=== PATIENT | female | born 1960 | race Caucasian/White ===

== ENCOUNTER → 2021-09-02 | Outpatient (CLI) | payer BC ==
--- NOTE | 2021-09-02 10:55 | MR ---
EXAMINATION TYPE: MR brain wo DATE OF EXAM: 09/02/2021 COMPARISON: NONE HISTORY: Progressive imbalance, cervical myelopathy, forgetfulness, dizziness, neck pain TECHNIQUE: T1-weighted sagittal, T2, FLAIR, and diffusion axial, and T2 coronal coronal views of the brain are submitted. FINDINGS: There is no evidence of acute ischemia. There is a moderate degenerative change of the greater centra l component. Faint periventricular confluent areas of signal are seen as well as multiple subcentimet er scattered areas throughout the white matter bilaterally. Finding nonspecific. No midline shift or mass effect.. Craniocervical junction maintained. Sella turcica has a normal appearance. No cerebellopontine angle mass. Changes of chronic sinusitis are noted. Orbits are symmetric. 5 mm lo w density lesion left frontal bone most likely related to assess benign bone cyst. Well-circumscribed margins. IMPRESSION: 1. No acute intracranial process. There is degenerative change with a greater central component. Norm al pressure hydrocephalus in the differential diagnosis. Nonspecific white matter changes could been the basis of remote white matter ischemia. Mild transependymal edema the differential diagnosis. 2. Chronic sinusitis. 3. 5 mm left frontal osseous lesion with well-circumscribed margins likely benign. Short-term follow- up 6 month follow-up be obtained to confirm stability. EXAMINATION TYPE: MR cervical spine wo DATE OF EXAM: 09/02/2021 COMPARISON: NONE HISTORY: Progressive imbalance, cervical myelopathy, forgetfulness, dizziness, neck pain TECHNIQUE: T1 sagittal and coronal, T2 sagittal, and gradient echo axial views of the cervical spine are submitted. FINDINGS: The cranial cervical junction is preserved. There is no abnormal signal seen within the sp inal cord or paraspinal soft tissues. There is a scoliotic curvature of the cervical thoracic spine s ignificant curvature noted. At C2-3 there is no disc herniation or canal stenosis. There is facet arthropathy but no significant foraminal encroachment At C3-4 there is disc desiccation and facet arthropathy but no disc herniation or canal stenosis. The re is mild left-sided foraminal encroachment. Facet arthropathy noted. At C4-5 there is degenerative disc disease with facet arthropathy. No disc herniation or canal stenos is. No focal herniation. At C5-6 there is there is a grade 1 anterolisthesis with more advanced facet arthropathy. Broad-based central disc bulging with effacement of thecal sac but no spinal cord contact slightly greater parac entrally to the left. Severe degenerative disc disease. At C6-7 there is severe degenerative disc disease with facet arthropathy and slight anterolisthesis. Neural foramina remain patent with no obvious disc herniation or canal stenosis. Very mild central di sc bulging with no discrete herniation. At C7-T1 there is no disc herniation, canal stenosis, or foraminal encroachment. IMPRESSION: 1. Thickened scoliotic curvature of the cervical spine with multilevel degenerative disc disease and severe changes seen at C5-6 and C6-7-7. Both levels demonstrate a slight anterolisthesis and advance d facet arthropathy. Both levels demonstrate mild broad-based disc bulging with effacement of thecal sac but no significant canal stenosis or spinal cord contact. 2. Multilevel facet arthropathy.
== END | disposition home or self-care (01) ==
LOC: RADMRIMAIN 08:02
PROVIDERS: ATTEND Psychiatry & Neurology Neurology
DX: G91.2 (Idiopathic) normal pressure hydrocephalus (principal); I67.82 Cerebral ischemia; J32.9 Chronic sinusitis, unspecified; M50.323 Other cervical disc degeneration at C6-C7 level; M47.812 Spondylosis without myelopathy or radiculopathy, cervical region; M43.12 Spondylolisthesis, cervical region; M41.83 Other forms of scoliosis, cervicothoracic region
CPT/HCPCS: 70551; 72141

== ENCOUNTER → 2022-04-23 | Outpatient (CLI) | payer BC ==
--- NOTE | 2022-04-24 09:03 | MR ---
EXAMINATION TYPE: MR lumbar spine wo con DATE OF EXAM: 04/23/2022 COMPARISON: None HISTORY: Lower back pain, radiates down right leg x 1 yr. No history surgery/trauma. CONTRAST: 0 mL intravenous Gadavist. TECHNIQUE: Multiplanar, multisequence images of the lumbar spine were acquired. FINDINGS: L5-S1: No significant disc bulge or disc herniation. No spinal canal stenosis. No foraminal stenosi s. L4-L5: There is a grade 1 spondylolisthesis of L4 anteriorly on L5. Disc uncovering has moderate ante rior thecal sac flattening. Facet hypertrophy is present more so on the right. Severe right foraminal stenosis is present. No AP spinal canal stenosis is present. L3-L4: Broad-based disc bulge is present with mild anterior thecal sac flattening. No AP spinal canal stenosis present. Facet hypertrophy with ligamentum flavum laxity has minimal posterior lateral thec al sac compression greater on the right. Mild right and left foraminal stenosis is present. L2-L3: Minimal disc bulge has anterior thecal sac contact. No AP spinal canal stenosis present. Facet hypertrophy and ligamentum flavum laxity of posterior lateral thecal sac compression. Foramen are pa tent. L1-L2: There is loss of disc height to this level. Minimal retrograde spondylolisthesis of L1 on L2 i s present. Disc bulging greater into the left paracentral region is present with mild anterior thecal sac compression. Some mild focal protrusion may be present in the left paracentral region. No AP spi nal canal stenosis is present. T12-L1: No significant disc bulge or disc herniation. No spinal canal stenosis. No foraminal stenos is. IMPRESSION: 1. Grade 1 spondylolisthesis of L4 anterior and L5. A minimal retrograde spondylolisthesis of L1 on L 2 may be present. 2. Disc uncovering with moderate anterior thecal sac compression L4-5. Severe right foraminal stenosi s is present at this level. 3. Broad-based disc bulge L3-4 with mild anterior thecal sac compression. Facet hypertrophy and ligam entum flavum laxity is present with mild posterior lateral thecal sac compression. Mild foraminal aly nosis. 4. Loss of disc height L1-2. Minimal focal protrusion and mild left paracentral disc bulge is present at L1 to with mild thecal sac compression without stenosis.
== END | disposition home or self-care (01) ==
LOC: RADMRIMAIN 11:53
PROVIDERS: ATTEND Nurse Practitioner Family
DX: M43.16 Spondylolisthesis, lumbar region (principal); M47.816 Spondylosis without myelopathy or radiculopathy, lumbar region; M48.061 Spinal stenosis, lumbar region without neurogenic claudication; M99.73 Connective tissue and disc stenosis of intervertebral foramina of lumbar region
CPT/HCPCS: 72148

== ENCOUNTER → 2022-06-02 | Outpatient (CLI) | payer BC ==
[2022-06-02 12:12] VITALS: BP 180/79; PULSE 82; RESP 18; TEMP 98.4
--- NOTE | 2022-06-02 14:50 | P.PAINPG ---
PQRS Measure Charge Sheet Comment: HISTORY OF PRESENT ILLNESS: 61 yr old female w at side as a referral from [facility] presents today w LBP x 1 yrs secondary to DDD, spondylolisthesis and facet arthropathy without myelopathy for evaluation. Pt her pain level is currently at 8/10 in intensity, constant, fluctuates, sore, tender in character w radiation down the BLEs. Pain is provoked with massage therapy, chiropractic treatments ended in February 2022 due to ineffectiveness, activity. Pain is alleviated with PT x 6 wks in November 2021, medications (Tramadol, Ibuprofen), use of a lumbar support brace, heating pad use, repositioning and rest. PMH: HTN, Hypothyroidism, OA, IDDM PSH:C section x 2, Appendectomy SH: No tobacco use, Evening wine, No illicit drug use. . FH: Denies All: See list Meds: See list REVIEW OF ORGAN SYSTEMS: CONSTITUTIONAL: No fevers or chills. No recent weight loss. NEUROLOGICAL: + numbness and tingling along the distal extremities. No seizure disorders or headaches. MUSCULOSKELETAL: + pain PSYCHIATRIC: Denies current depression or suicidal thoughts. Physical Examinations : Constitutional : Cooperative , not in acute distress . Neurologic : Cranial nerve II to XII intact. No focal neurological deficits. Psychiatric : alert & oriented x 3. Matching mood & appropriate affect. Judgment & insight intact. Musculoskeletal : Cervical Spine Motor strength in the deltoid and biceps: Normal right side. Normal Left side Motor strength biceps and the wrist extensors: Normal right side . Normal left side Motor strength in the triceps muscle: Normal right side. Normal left side Deep tendon reflexes: Normal at the biceps. Normal at Brachioradialis. Normal at triceps Vertebral body tenderness to deep palpation over Cervical facet loading test: positive bilaterally Spurling test: positive bilaterally Neck distraction test: positive bilaterally Jatinder sign: positive bilaterally Lumbar spine Motor strength lower extremities ,thigh and legs 5/5 Right side , 5/5 Left side Deep tendon reflexes : Normal Knee Jerk. Normal Ankle Jerk Vertebral body tenderness over L4 Lumbar facet Loading Test: positive Right / positive Left Range of motion of the lumbar spine Flexion 30 degrees, extension 10 degrees Straight Leg Raise test: Left/ Right positive at 30 degrees Papo test: positive right / positive left. Severe tenderness over the Sacroiliac joint on the Right / Left sides Gaenslen test: positive bilaterally Seated flexion test: positive bilaterally. Sacral spine : Severe tenderness over the Sacroiliac joint: right side / left side Range of motion: Flexion of the lumbar spine <60 degrees Range of motion: Extension of the lumbar spine <20 degrees Gaenslen's Test positive Sp's Test positive Papo test: positive right side / l eft side Thigh Thrust Test Sacral Thrust Test Imaging: MRI without contrast of the lumbar spine from 04/23/22 reviewed Assessment/ Plan : Lumbar DDD, Lumbar spondylosis Recommendation of TYLER L4-5 #1. May need a series of injections, up to 3 per 6 mo period, for optimal pain relief. Risks, benefits of procedure discussed and patient verbalized understanding. Admits to aspirin or anti- coagulant use and admits to medical history of diabetes. Protocol for discontinuation/ continuation of medications dustin procedure discussed. All questions answered. I have spent greater than 30 minutes on patient care today. Dr De Guzman was available by phone for the evaluation of this patient. The time was used to review the medical records including relevant urine studies and Prescription history (MAPs), review of the available imaging, evaluation and examination of the patient, coordination of care with the medical staff and if applicable referring physicians, as well as creation of the medical record Controlled Substance Measures - Controlled Substance Measures Is patient prescribed a controlled substance at discharge?: Yes When asked, does pt state using other controlled substances?: No If prescribed controlled substance>3 days was MAPS reviewed?: Yes If Rx opioid, was Start Talking consent form obtained?: Yes Was information provided regarding opioid addiction?: Yes
== END ==
LOC: PNWHC3 08:54
PROVIDERS: ATTEND Specialist
DX: M51.36 Other intervertebral disc degeneration, lumbar region (principal); M47.816 Spondylosis without myelopathy or radiculopathy, lumbar region; I10 Essential (primary) hypertension; E03.9 Hypothyroidism, unspecified; M19.90 Unspecified osteoarthritis, unspecified site; E11.9 Type 2 diabetes mellitus without complications; Z88.0 Allergy status to penicillin; Z88.5 Allergy status to narcotic agent
CPT/HCPCS: 99211

== ENCOUNTER 2022-07-01 09:47 | Day surgery (SDC) | payer BC ==
[2022-06-30 11:25] VITALS: BMI 26.6
[~2022-07-01 09:47] MED LIST: LACTATED RINGERS 1,000 ML IV SCH
[2022-07-01] MEDS ORDERED: ROPIVACAINE 5 MG/ML 20 ML AMPULE ONE (10:42)
[2022-07-01] MEDS ORDERED: IOPAMIDOL M200 10 ML VIAL ONE (10:42)
[2022-07-01] MEDS ORDERED: fentaNYL (PF) 50 MCG/ML 2 ML AMP ONE (10:42)
[2022-07-01] MEDS ORDERED: TRIAMCINOLONE ACETONIDE 40 MG/ML 1 ML VIAL ONE (10:42)
[2022-07-01] MEDS ORDERED: MIDAZOLAM 2 MG/2 ML VIAL ONE (10:42)
[2022-07-01 10:46] VITALS: RESP 16; TEMP 97.2
[2022-07-01 10:48] LABS: Glucose,Whole Blood 232 mg/dL (70-110)
--- NOTE | 2022-07-01 11:04 | P.PCN ---
Date of Procedure: 07/01/22 Surgeon: Aleks West Pathology: none sent Condition: stable Disposition: PACU Description of Procedure: PREOPERATIVE DIAGNOSIS: 1-Lumbar radiculopathy 2- Lumber Degenerative Disc Diseases. POSTOPERATIVE DIAGNOSIS: 1-Lumbar radiculopathy. 2-Lumbar Degenerative Disc Diseases PROCEDURE 1. Lumbar epidural steroid injection under fluoroscopic guidance at the L5-S1 level. 2. Lumbar epidurogram. ANESTHESIA: Local with 1% lidocaine; and IV moderate conscious sedation with Versed and fentanyl EBL: Minimal PROCEDURE INDICATION: The patient with low back pain and radiculitis symptoms unresponsive to conservative treatment. Fluoroscopy was used to optimize visualization of the needle placement and to maximize safety. PROCEDURE DESCRIPTION / TECHNIQUE: The patient was seen and identified in the preoperative area. Risks, benefits, complications including but not limited to infections ,bleeding ,allergic reaction to the medications ,nerve damage and not complete pain relief , and alt ernatives were discussed with the patient. The patient agreed to proceed with the procedure and signed the consent. IV was started, and vital signs were stable. Patient was taken to the OR and time out was completed. The patient was placed in the prone position on procedure table and a pillow was placed under the abdomen to reduce lumbar lordosis. The lumbosacral area was prepped and draped in the usual sterile fashion with ChloraPrep.Patient was closely monitored during the procedure. Conscious sedation was used during the procedure to decrease patients anxiety. Vital signs were monitered during the entire procedure. Using anterior-posterior fluoroscopy, the 5-S1 interlaminar space was identified and the skin over this site was marked and then infiltrated with 1% lidocaine subcutaneously. Subsequently, a 20-gauge Tuohy epidural needle was inserted and advanced toward the epidural space using the Loss of resistance to air technique and guided by AP and lateral fluoroscopy. The correct needle position in the epidural space was verified with the injection of 1 mL of the water soluble contrast dye Omnipaque 180 contrast and observing an excellent epidurogram with the epidural spread of the dye, after negative aspiration for blood and CSF and in the absence of paresthesias. Again after negative aspiration, a 8 ml mixture containing 40 mg of Kenalog and 5 ml of preservative free Normal Saline, and 2 ml of preservative free Ropivacaine 0.5% solution was injected and a washout of epidurogram was seen. Needle was withdrawn intact, skin was cleansed, and bandages were applied. patient tolerated procedure well and was transferred to PACU in stable condition.A copy of the needle placement picture was saved to the fluoroscopy machine. Of note I tried the L4 5 level in the right paramedian approach however due to in a narrow epidural space and to bony fusion on the right side I wasn't able to get access to the epidural space at this level and that's why I did the procedure at the L5-S1 level in the right paramedian approach. COMPLICATIONS: None Sedation time:[id number]
[2022-07-01] MEDS ORDERED: IV FLUID CONTINUATION 1,000 ML IV ONE (11:09)
[2022-07-01 11:27] VITALS: BP 149/84; PULSE 92
--- NOTE | 2022-07-01 11:31 | FL ---
Intraoperative/procedural fluoroscopic services were provided. Total fluoroscopy time is 17 seconds w ith a total of 1 submitted images to PACS. Please see the operative/procedural note for further detai ls.
== END 2022-07-01 11:33 | disposition home or self-care (01) ==
LOC: ORPAIN 09:47
PROVIDERS: ATTEND Anesthesiology
DX: M51.16 Intervertebral disc disorders with radiculopathy, lumbar region (principal)
CPT/HCPCS: 62323; J2250; J3301; J3010; Q9966; J2795; 99152

== ENCOUNTER 2022-08-08 13:36 | Emergency (ER) | payer BC ==
[2022-08-08 14:45] VITALS: BP 192/88; PULSE 113; RESP 18; TEMP 98.3
[2022-08-08] MEDS ORDERED: ONDANSETRON 4 MG/2 ML VIAL IVP STA (16:42)
[2022-08-08] MEDS ORDERED: FAMOTIDINE 20 MG/2 ML VIAL IV STA (16:42)
[2022-08-08] MEDS ORDERED: SODIUM CHLORIDE 0.9% 1,000 ML IV STA (16:42)
--- NOTE | 2022-08-08 16:45 | ED ---
General Adult HPI - General Chief complaint: Nausea/Vomiting/Diarrhea Stated complaint: Nausea,Vomiting Time Seen by Provider: 08/08/22 16:34 Source: patient, family, RN notes reviewed Mode of arrival: ambulatory Limitations: no limitations - History of Present Illness Initial comments: Patient is a pleasant 62-year-old female presenting to the emergency department with concerns with nausea vomiting. Onset of symptoms was last night. This is not a chronic problem. Patient has been taking Motrin and Ultram injury to back problems recently. Patient feels these may be upsetting her stomach as well. Patient is unable to quantify how many times she has vomited. Patient states no abdominal pain. - Related Data Home Medications Medication Instructions Recorded Confirmed Insulin Aspart (Niacinamide) 0 unit SQ CONTINUOUS 06/30/22 07/16/22 [Fiasp Penfill 100 Unit/ml Cart] Atorvastatin Calcium 40 mg PO HS 07/01/22 07/16/22 Cetirizine HCl 10 mg PO DAILY 07/01/22 07/16/22 Cholecalciferol [Vitamin D3 (25 50 mcg PO DAILY 07/01/22 07/16/22 Mcg = 1000 Iu)] Fish Oil/Dha/Epa [Fish Oil 1,200 1 each PO BID 07/01/22 07/16/22 mg Fish Oil] Gabapentin [Neurontin] 400 mg PO TID 07/01/22 07/16/22 Levothyroxine Sodium [Synthroid] 75 mcg PO DAILY 07/01/22 07/16/22 Meloxicam 7.5 mg PO DAILY 07/01/22 07/16/22 lisinopriL [Zestril] 5 mg PO DAILY 07/01/22 07/16/22 traMADol HCL 50 mg PO BID 07/01/22 07/16/22 Allergies Allergy/AdvReac Type Severity Reaction Status Date / Time latex Allergy Rash/Hives Verified 08/08/22 14:42 Penicillins Allergy Rash/Hives Verified 08/08/22 14:42 codeine AdvReac Nausea & Verified 08/08/22 14:42 Vomiting Review of Systems ROS Statement: Those systems with pertinent positive or pertinent negative responses have been documented in the HPI. ROS Other: All systems not noted in ROS Statement are negative. Constitutional: Denies: fever Eyes: Denies: eye pain ENT: Denies: ear pain Respiratory: Denies: cough Cardiovascular: Denies: chest pain Endocrine: Denies: fatigue Gastrointestinal: Reports: as per HPI, nausea, vomiting. Denies: abdominal pain, diarrhea, constipation Genitourinary: Denies: dysuria Musculoskeletal: Reports: as per HPI Skin: Denies: rash Neurological: Denies: weakness Past Medical History Past Medical History: Diabetes Mellitus, Osteoarthritis (OA) Additional Past Medical History / Comment(s): "I have a disc out of place", chronic back pain History of Any Multi-Drug Resistant Organisms: Unobtainable Past Surgical History: Appendectomy, Section Additional Past Surgical History / Comment(s): c sections x2, cyst removed from wrist,cyst removed from Past Anesthesia/Blood Transfusion Reactions: No Reported Reaction Past Psychological History: No Psychological Hx Reported Smoking Status: Never smoker Past Alcohol Use History: None Reported Past Drug Use History: None Reported - Past Family History Mother Family Medical History: No Reported History Father Additional Family Medical History / Comment(s): depression General Exam Limitations: no limitations General appearance: alert, in no apparent distress Head exam: Present: normocephalic Eye exam: Present: normal appearance Neck exam: Present: normal inspection Respiratory exam: Present: normal lung sounds bilaterally Cardiovascular Exam: Present: tachycardia, normal heart sounds Expanded Peripheral pulses: 2+: Posterior Tibialis (R), Posterior Tibialis (L), Dorsalis Pedis (R), Dorsalis Pedis (L) GI/Abdominal exam: Present: soft, normal bowel sounds. Absent: distended, te nderness, guarding, rebound, rigid, pulsatile mass Extremities exam: Present: normal inspection. Absent: pedal edema, calf tenderness Neurological exam: Present: alert Psychiatric exam: Present: normal affect, normal mood Skin exam: Present: normal color Course Vital Signs 08/08/22 14:42 Temperature 98.3 F Pulse Rate 113 H Respiratory 18 Rate Blood Pressure 192/88 O2 Sat by Pulse 100 Oximetry Medical Decision Making - Medical Decision Making Patient has eloped Disposition Clinical Impression: Vomiting Disposition: Left Against Medical Advice Is patient prescribed a controlled substance at d/c from ED?: No Referrals: Stephany Alejandro MD [Primary Care Provider] - 1-2 days Time of Disposition: 18:43
[2022-08-08] MEDS ORDERED: ONDANSETRON 4 MG TAB PO STA (17:50)
== END 2022-08-08 18:41 | disposition left against medical advice (07) ==
LOC: EC 13:36
DX: R11.2 Nausea with vomiting, unspecified (principal); E11.9 Type 2 diabetes mellitus without complications; M19.90 Unspecified osteoarthritis, unspecified site; Z91.040 Latex allergy status; Z88.0 Allergy status to penicillin; Z53.29 Procedure and treatment not carried out because of patient's decision for other reasons; Z88.5 Allergy status to narcotic agent; Z79.4 Long term (current) use of insulin; Z79.899 Other long term (current) drug therapy
CPT/HCPCS: 99283

== ENCOUNTER 2022-08-29 12:03 | Day surgery (SDC) | payer BC ==
[2022-08-29 12:33] VITALS: RESP 16; TEMP 98.4
[2022-08-29] MEDS ORDERED: fentaNYL (PF) 50 MCG/ML 2 ML AMP ONE (12:35)
[2022-08-29] MEDS ORDERED: ROPIVACAINE 5 MG/ML 20 ML AMPULE ONE (12:35)
[2022-08-29] MEDS ORDERED: MIDAZOLAM 2 MG/2 ML VIAL ONE (12:35)
[2022-08-29] MEDS ORDERED: TRIAMCINOLONE ACETONIDE 40 MG/ML 1 ML VIAL ONE (12:35)
[2022-08-29 12:36] LABS: Glucose,Whole Blood 126 mg/dL (70-110)
--- NOTE | 2022-08-29 12:58 | P.PCN ---
Date of Procedure: 08/29/22 Description of Procedure: Pre- and Post-operative Diagnosis: Lumbar facet arthropathy, and lumbar spon dylosis without myelopathy. Procedure: Right side L4-5 radiofrequency thermocoagulation of medial branch under fluoroscopic guidance right side L5-S1 dorsal ramus radiofrequency thermocoagulation under fluoroscopic guidance Surgeon: Agnieszka Del Rosario Anesthesia: Local: 1% Lidocaine, IV sedation : Midazolam 1 mg, and fentanyl 50 micrograms. Complications: None Estimated blood loss: None. Specimen removed: None Fluoroscopic image: Saved to patient electronic medical records. Indications for Procedure: The patient is well known to pain clinic for his chronic low back pain management. The lumbar facet loading test was positive with a clinical diagnosis of lumbar facet arthropathy. Patient had marked decrease in pain after the diagnostic medial branch procedure. Came here for radiofrequency ablation for longer pain relief. PROCEDURE DESCRIPTION: The patient was seen and identified in the preoperative area. Risks, benefits, complications, and alternatives were discussed with the patient. The patient agreed to proceed with the procedure and signed the consent. IV was started. Vital signs were stable. Patient was taken to the procedure room and timeout was completed. The patient was placed in the prone position on procedure table and a pillow was placed under the abdomen to reduce lumbar lordosis. The lumbosacral area was prepped and draped in the usual sterile fashion. Critical pause was taken. Vital signs were closely monitored during the procedure. The fluoroscopic camera was placed in the anteroposterior position to identify the junction of superior articular process and its corresponding injection with its transverse process of L4, L5, S1, which were anesthetized with 1% lidocaine. We used 18-gauge 100-mm curved, sharp radiofrequency cannula with 10-mm active tip for the procedure. The first cannula was guided by fluoroscopy to the S1 superior articular process and its corresponding junction with its ala. The second cannula was guided by fluoroscopy into the L5 superior articular process and its corresponding junction with its transverse process and pedicle. The third cannula was guided by fluoroscopy into the L4 SAP and its corresponding junction with its transverse process and its pedicle. After confirmation of needle tip position on oblique view, each site underwent motor testing at 2 Hz and 0 to 2.5 volts, and there was good motor stimulation in the back and no radicular symptoms or paresthesias. After confirmation of motor testing, 0.5 mL of block solution injected at each site . Block solution contained 2mL of 0.5% ropivacaine preservative free mixed with 40 MG of Kenalog. At this time, each site was ablated using continuous radiofrequency mode at 80 degrees Celsius for 90 seconds at each level. At the end of the procedure, each needle was retracted approximately 1 cm and the skin was infiltrated with 0.5% ropivacaine preservative free 1 ml at each site. Skin was cleansed and bandages were applied. Disposition : The patient tolerated the procedure very well. The patient was transferred to the recovery room and remained stable until discharged home. The patient was given detailed discharge instructions for infection, bleeding, and increased pain at the injection site, and was advised to seek immediate medical attention should significant side effects develop. The patient will be scheduled with Pain Clinic within 4 weeks.
[2022-08-29] MEDS ORDERED: IV FLUID CONTINUATION 1,000 ML IV ONE (13:02)
[2022-08-29 13:22] VITALS: BP 172/76; PULSE 97
--- NOTE | 2022-09-01 13:04 | FL ---
EXAMINATION TYPE: FL guided pain mgmt statistic DATE OF EXAM: 08/29/2022 CLINICAL HISTORY: Low back pain. TECHNIQUE: Fluoroscopy. COMPARISON: None. FINDINGS: Fluoroscopic guidance was provided during pain relief procedure performed by Dr. Gallegos. A total of 7 seconds of fluoroscopic time was utilized during the procedure and 4 spot images are ac quired. Images acquired shows needle localization at several levels in the lumbar spine. IMPRESSION: As Above.
== END 2022-08-29 13:48 | disposition home or self-care (01) ==
LOC: ORPAIN 12:03
DX: M47.816 Spondylosis without myelopathy or radiculopathy, lumbar region (principal); G89.29 Other chronic pain; I10 Essential (primary) hypertension; E78.00 Pure hypercholesterolemia, unspecified; E11.9 Type 2 diabetes mellitus without complications; E03.9 Hypothyroidism, unspecified; M19.90 Unspecified osteoarthritis, unspecified site; Z88.0 Allergy status to penicillin; Z88.5 Allergy status to narcotic agent; Z91.040 Latex allergy status; Z79.890 Hormone replacement therapy; Z79.4 Long term (current) use of insulin; Z79.899 Other long term (current) drug therapy
CPT/HCPCS: 64635; 64636; J2250; J3301; J3010; J2795

== ENCOUNTER → 2022-12-15 | Outpatient (CLI) | payer BC ==
[2022-12-15 16:25] LABS: African American GFR (CKD) 70.4 (60.0-200.0); Anion Gap 11.6 mmol/L (10.00-18.00); BUN/Creat Ratio 13.1 Ratio (12.00-20.00); Blood Urea Nitrogen 13.1 mg/dL (9.0-27.0); Calcium 9.9 mg/dL (8.7-10.3); Carbon Dioxide 28.4 mmol/L (20.0-27.5); Non-African American GFR(CKD) 60.8 (60.0-200.0); Potassium 3.7 mmol/L (3.5-5.5)
[2022-12-15 21:49] LABS: INR 0.88 (0.90-1.11)
[2022-12-16 05:24] LABS: Basophils # (A) 0.21 X 10*3/uL (0.00-0.10); Basophils % (A) 1.3 %; Eosinophils # (A) 3.65 X 10*3/uL (0.04-0.35); Eosinophils % (A) 23.2 %; HCT 35.4 % (37.2-46.3); HGB 11.3 g/dL (12.0-15.0); Immature Grans, Automated 1.1 %; Lymphocytes # (A) 4.19 X 10*3/uL (0.90-5.00); Lymphocytes % (A) 26.7 %; MCH 31.4 pg (27.0-32.0); MCHC 31.9 g/dL (32.0-37.0); MCV 98.3 fL (80.0-97.0); Mean Platelet Volume 9.5 fL (9.5-12.2); Monocytes # (A) 0.89 X 10*3/uL (0.20-1.00); Monocytes % (A) 5.7 %; NRBC Per 100 WBC 0 /100 WBCS (0.0-0.0); Platelet Count 653 X 10*3/uL (140-440); RDW 14.9 % (11.5-14.5); WBC 15.71 X 10*3/uL (4.50-10.00)
== END | disposition home or self-care (01) ==
LOC: LABPAT 12:03
PROVIDERS: ATTEND Orthopaedic Surgery
DX: Z01.812 Encounter for preprocedural laboratory examination (principal); M43.16 Spondylolisthesis, lumbar region; M47.816 Spondylosis without myelopathy or radiculopathy, lumbar region; M48.061 Spinal stenosis, lumbar region without neurogenic claudication
CPT/HCPCS: 80048; 85025; 85610

== ENCOUNTER → 2023-02-05 | Outpatient (CLI) | payer BC ==
[2023-02-05 11:39] LABS: African American GFR (CKD) 71 (>60 ml/min/1.73 sqM); Anion Gap 18 mmol/L; Blood Urea Nitrogen 23 mg/dL (7-17); Calcium 10.4 mg/dL (8.4-10.2); Carbon Dioxide 15 mmol/L (22-30); Chloride 101 mmol/L (98-107); Glucose 348 mg/dL (74-99); Non-African American GFR(CKD) 61 (>60 ml/min/1.73 sqM); Potassium 5.3 mmol/L (3.5-5.1); Sodium 134 mmol/L (137-145)
[2023-02-05 15:06] LABS: HCT 38.2 % (37.2-46.3); HGB 11.8 g/dL (12.0-15.0); MCH 32.6 pg (27.0-32.0); MCHC 30.9 g/dL (32.0-37.0); MCV 105.5 fL (80.0-97.0); Mean Platelet Volume 9.3 fL (9.5-12.2); NRBC Per 100 WBC 0 /100 WBCS (0.0-0.0); Platelet Count 555 X 10*3/uL (140-440); RBC 3.62 X 10*6/uL (4.10-5.20); WBC 6.01 X 10*3/uL (4.50-10.00)
[2023-02-05 15:45] LABS: Basophils # (A) 0.05 X 10*3/uL (0.00-0.10); Basophils % (A) 0.8 %; Crenated RBC 3+; Eosinophils # (A) 0.01 X 10*3/uL (0.04-0.35); Eosinophils % (A) 0.2 %; Immature Grans, Automated 0.3 %; Lymphocytes # (A) 1.32 X 10*3/uL (0.90-5.00); Monocytes # (A) 0.39 X 10*3/uL (0.20-1.00); Monocytes % (A) 6.5 %; Neutrophils # (A) 4.22 X 10*3/uL (1.80-7.70); Neutrophils % (A) 70.2 %
[2023-02-05 18:54] LABS: INR 0.87 (0.90-1.11); Prothrombin Time 9.9 sec (9.9-11.9)
== END | disposition home or self-care (01) ==
LOC: LABPAT 09:59
PROVIDERS: ATTEND Orthopaedic Surgery
DX: Z01.812 Encounter for preprocedural laboratory examination (principal); Z22.322 Carrier or suspected carrier of Methicillin resistant Staphylococcus aureus; M47.816 Spondylosis without myelopathy or radiculopathy, lumbar region; M43.16 Spondylolisthesis, lumbar region; M48.061 Spinal stenosis, lumbar region without neurogenic claudication
CPT/HCPCS: 36415; 80048; 85025; 85610; 87070

== ENCOUNTER → 2023-02-23 | Outpatient (CLI) | payer BC ==
[2023-02-23 11:56] LABS: INR 0.9 (<1.2); Partial Thromboplastin Time 22.6 sec (22.0-30.0); Prothrombin Time 9.6 sec (9.0-12.0)
[2023-02-23 15:31] LABS: Basophils # (A) 0.12 X 10*3/uL (0.00-0.10); Basophils % (A) 1.4 %; Eosinophils # (A) 0.11 X 10*3/uL (0.04-0.35); Eosinophils % (A) 1.3 %; HCT 30.7 % (37.2-46.3); HGB 9.8 d/dL (12.0-15.0); Lymphocytes # (A) 2.02 X 10*3/uL (0.90-5.00); Lymphocytes % (A) 23.1 %; MCH 32.7 pg (27.0-32.0); MCHC 31.9 d/dL (32.0-37.0); MCV 102.3 FL (80.0-97.0); Mean Platelet Volume 9.5 FL (9.5-12.2); Monocytes # (A) 0.45 X 10*3/uL (0.20-1.00); Monocytes % (A) 5.1 %; NRBC Per 100 WBC 0 X 10*3/uL (0.00-0.01); Neutrophils # (A) 6.01 X 10*3/uL (1.80-7.70); Neutrophils % (A) 68.5 %; Platelet Count 586 X 10*3/uL (140-440); RDW 16.8 % (11.5-14.5); WBC 8.76 X 10*3/uL (4.50-10.00)
[2023-02-23 16:00] LABS: T4, Free (Free Thyroxine) 1.13 ng/dL (0.80-1.80)
[2023-02-23 16:13] LABS: ALT 36 U/L (8-44); AST 38 U/L (13-35); Albumin 4.3 d/dL (3.8-4.9); Albumin/Globulin Ratio 1.65 Ratio (1.60-3.17); Alkaline Phosphatase 133 U/L (41-126); BUN/Creat Ratio 21.36 Ratio (12.00-20.00); Blood Urea Nitrogen 23.5 mg/dL (9.0-27.0); Calcium 10.3 mg/dL (8.7-10.3); Carbon Dioxide 18.7 mmol/L (21.6-31.8); Chloride 102 mmol/L (96-109); Globulin 2.6 d/dL (1.6-3.3); Glucose 166 mg/dL (70-110); Potassium 4.9 mmol/L (3.5-5.5); Sodium 136 mmol/L (135-145); Total Bilirubin <0.2 mg/dL (0.3-1.2); Total Protein 6.9 d/dL (6.2-8.2)
== END | disposition home or self-care (01) ==
LOC: LABPAT 10:15
PROVIDERS: ATTEND Orthopaedic Surgery
DX: Z01.812 Encounter for preprocedural laboratory examination (principal); M47.816 Spondylosis without myelopathy or radiculopathy, lumbar region; M43.16 Spondylolisthesis, lumbar region; M48.061 Spinal stenosis, lumbar region without neurogenic claudication
CPT/HCPCS: 80053; 83036; 84439; 84443; 85025; 85610; 85730

== ENCOUNTER → 2023-02-23 | Outpatient (CLI) | payer BC | END | disposition home or self-care (01) | LOC: LABWHC1 10:19 | PROVIDERS: ATTEND Internal Medicine | DX: Z53.9 Procedure and treatment not carried out, unspecified reason (principal) ==

== ENCOUNTER 2023-03-05 13:16 | Observation (INO) | payer BC ==
[2023-03-02 16:03] VITALS: BMI 25.0
--- NOTE | 2023-03-05 12:05 | P.HPOR ---
History of Present Illness H&P Date: 02/05/23 .D:Date: 02/05/23 : 10:54am .T:Title: [facility] Age: 62 year Height: 5'5" Weight: 160 lbs BMI: 26.63 kg/m2 Occupation: bar waiter/waitress- currently off VAS:10 CHIEF COMPLAINT: Preoperative Appointment for scheduled for L4-5 MIS PLIF DOI: Chronic DOS: None Duration of current treatment regiment: 11 months HISTORY: Xrays No new xrays taken in office Trauma or injury No Work-Related No Pain description Dull, aching, sharp, increasing . Location Posterior Patient notes that their pain radiates to right lower extremity Activity Modification Yes Hand Dominance Right TREATMENTS COMPLETED: 6 weeks of PT completed? Month and Year of last PT date? 10/2021 Yes How many sessions? 12 Did it help? No Physician directed home exercise completed? No Medications Yes; List: Gabapentin 400mg TID, Meloxicam, & Tylenol all without relief Alternative interventions Chiropractic:No Massage therapy: No R.I.C.E:Yes; heating pad with mild/temporary relief of her symptoms. Brace:No Injections Yes (lumbar TYLER 07/01/22) How many?1 Did they help?No RFA:Yes -08/29/22, without relief SUBJECTIVE: Ms. Mckeon returns to the office today for a preoperative appointment for her L4-5 minimally invasive posterior lumbar interbody fusion. The patient continues to experience worsening lumbar spine pain that radiates down into the right lower extremity, associated with numbness and tingling throughout the L4-L5 dermatomal distribution. She notes this pain has been increasing over the last 1 year without any known injury or trauma. She has trialed several injections with no lasting relief of her symptoms. Ms. Mckeon' symptoms are exacerbated with any standing, ambulation, high impact movements, and any flexion/ extension/twisting, and due to this she notes that it is increasingly difficult to complete many of their daily tasks. The patient is having severe sleep disturbances as well due to their ongoing pain and associated symptoms. Regarding treatments, the patient has previously trialed all above mentioned treatment modalities without relief of her symptoms. Patient denies trialing any other modalities at this time. For their symptoms, the patient has been taking Gabapentin, Meloxicam, and Tylenol all without relief of her symptoms. Otherwise the patient denies any f/c/sob/cp, no incision concerns, no bladder or bowel retention/incontinence, no perineal numbness/tingling, and ambulates independently today. HPI: Ms. Mckeon returns to the office on 11/05/2022 for a recheck of their low back pain. Of note, the patient has previously seen Samantha Razo N.P regarding this issue. WIth this she has trialed several injections lately and has found no lasting relief of her symptoms. Patient reports aching, sharp, increasing lumbar pain ongoing for a year with no known injury or trauma to indicate an exact onset of their symptoms. In addition to their lumbar pain, they do report that it radiates into the right lower extremity, associated with numbness and tingling through the L4-L5 dermatomal distribution. Overall the patient has seen a progressive increase in symptoms since their onset. Ms. Mckeon symptoms are exacerbated with any standing, ambulation, high impact movements like walking up and down stairs, and any flexion/extension/twisting, due to this they notes that it is increasingly difficult for Ms. Mckeon to complete many of their daily tasks. Patient is having severe sleep disturbances as well due to their ongoing pain and associated symptoms. Regarding treatments, the patient has previously trialed all above mentioned treatment modalities without relief of her symptoms. Patient denies trialing any other modalities at this time. For their symptoms, the patient has been taking Gabapentin, Mobic, and Tylenol all without relief of her symptoms. Otherwise the patient denies any f/c/sob/cp, no incision concerns, no bladder or bowel retention/incontinence, no perineal numbness/tingling, and ambulates independently. Ms. Mckeon returns to the office for a recheck on 10/01/2022 of their low back pain. Of note, the patient has previously seen Samantha Razo N.P regarding this issue. WIth this she has trialed several injections lately and has found no lasting relief of her symptoms. Patient reports aching, sharp, increasing lumbar pain ongoing for a year with no known injury or trauma to indicate an exact onset of their symptoms. In addition to their lumbar pain, they do report that it radiates into the right lower extremity, associated with numbness and tingling through the L4-L5 dermatomal distribution. Overall the patient has seen a progressive increase in symptoms since their onset. Ms. Mckeon symptoms are exacerbated with any standing, ambulation, high impact movements like walking up and down stairs, and any flexion/extension/twisting, due to this they notes that it is increasingly difficult for Ms. Mckeon to complete many of their daily tasks. Patient is having severe sleep disturbances as well due to their ongoing pain and associated symptoms. Regarding treatments, the patient has previously trialed all above mentioned treatment modalities without relief of her symptoms. Patient denies trialing any other modalities at this time. For their symptoms, the patient has been taking Gabapentin, Mobic, and Tylenol all without relief of her symptoms. Otherwise the patient denies any f/c/sob/cp, no incision concerns, no bladder or bowel retention/incontinence, no perineal numbness/tingling, and ambulates independently. Ms. Mckeon was last seen on 07/03/22 regarding an evaluation following their TYLER of the lumbar spine. She reports a 50% decrease in her pain and symptoms since the time of their last appointment. Overall the patient has seen an improvement in her ability to perform her daily activities. Ms. Mckeon notes that their symptoms are exacerbated with "overdoing it", but this is well controlled with rest. For her symptoms, patient is taking the medications meloxicam, gabapentin, and tramadol. Otherwise the patient is very happy with the progress they have made and have no acute concerns at this time. She denies any f/c/sob/cp, no incision concerns, no bladder or bowel retention/incontinence, no perineal numbness/tingling, and ambulates independently. Ms. Mckeon was last seen on 05/07/22 regarding Today Ms. Mckeon presents to the office for in evaluation of her low back pain and MRI results. Patient continues to report a sharp burning pain ongoing in her lower back that radiates into her right lower extremity. Patient has not had any improvement since last visit. MRI of the lumbar spine was reviewed with patient and plan of care discussed.She denies any f/c/sob/cp, no bladder or bowel retention/incontinence, no perineal numbness/tingling, and ambulates independently. Ms. Mckeon was last seen on 04/02/22 regarding an evaluation of low back pain. Patient reports a sharp, burning pain ongoing for a year with no known injury or trauma to indicate an exact onset of their symptoms. In addition to their pain, they do report that it radiates into the right hip and right SI joint. Overall the patient has seen a progressive increase in symptoms since their onset. Pateint reports weakness to her right lower extremity. Ms. Mckeon symptoms are exacerbated with standing and ambulation, due to this they notes that it is increasingly difficult for Ms. Mckeon to complete many of their daily tasks. Patient is having frequent sleep disturbances as well due to their ongoing pain and associated symptoms. Regarding treatments, the patient has previously trialed physical therapy in Oct 2021 with minimal relief and a heating pad. Patient denies trialing any other modalities at this time. For their symptoms, the patient has been taking Gabapentin, Mobic, and Tylenol ES. Otherwise the patient denies and any f/cp/sob, perineal numbness or tingling, loss of bowel or bladder. Patient is ambulatory independently. The patients' past social, medical, family, surgical history, as well as review of systems, have been reviewed. Please refer to the Neurosurgery History and Physical form that has been scanned in to our electronic medical record system. 14 points review of systems completed and as stated in HPI, all other systems reviewed are negative. Social History: Reviewed, see appropriate section of the chart for details. P3 Social History: Smoking: never a smoker P3 Alcohol: currently drinks alcohol P3 Alcohol Amount: 1 drink per day Family History: Reviewed, see appropriate section of the chart for details. P2 Past Medical History: Reviewed, see appropriate section of the chart for details. X0Migkhpy Medications: Rx: Fiasp U-100 Insulin 100 unit/mL subcutaneous solution Ref: 0 Rx: gabapentin 400 mg capsule Ref: 0 Rx: levothyroxine Ref: 0 Rx: lisinopriL 5 mg tablet Ref: 0 Rx: meclizine 25 mg tablet Ref: 0 Rx: meloxicam 7.5 mg tablet Ref: 0 Rx: Ozempic 1 mg/dose (4 mg/3 mL) subcutaneous pen injector Ref: 0 Rx: IBU Ref: 0 Rx: traMADol Ref: 0 P1 PHYSICAL EXAMINATION: General:Awake, alert, appropriate for age, in no acute distress. HEENT:No unusual neck masses around region of lateral neck triangle, thyroid, supraclavicular groove Heart:Regular rate and rhythm, normal S1, S2 and no murmur/gallop. Lungs:Clear to auscultation bilaterally with no use of accessory muscles. Extremities: Skin warm and dry without acute lesions, coloration, temperature, skin intact, no tenderness or erythema Integument: Hairy patches:ABSENT Dorsal skin dimples:ABSENT Cafe au lait spots:ABSENT Surgical incisions:NONE Palpation: Please see Pain drawing on Intake sheet for further detail. Midline spinal tenderness:No E6 Cervical Tenderness: No E6 Paralumbar tenderness:No E6 Parathoracic tenderness:No E6 Buttocks tenderness:No E6 Sacroilliac Tenderness:No Palpable stepoff at L4-5 POSTURAL and MUSCULO-SKELETAL EVALUATION: Coronal Balance:NEUTRAL Recumbent testing:Patient is able to lay flat on back Sagittal Balance:NEUTRAL Shoulder Profile:LEVEL Pelvic Girdle:LEVEL Neck ROM:UNRESTRICTED Lumbar ROM:RESTRICTED Shoulder ROM:Symmetrical Hip ROM: Symmetrical Knee ROM:Symmetrical Hands:Normal appearance, symmetrical Feet:Normal appearance, Symmetrical VASCULAR STATUS : LEFT RIGHT Wrist Pulses INTACT INTACT Pedal Pulses (Dors. pedis & post.tibialis) INTACT INTACT Color NORMAL NORMAL Edema Absent Absent NEUROLOGIC EXAMINATION: Mental Status:Awake and alert, fully oriented, with normal attention, concentration and memory, and fluent, appropriate speech. Cranial Nerves: I: Olfactory not tested. II: Visual acuity normal, no visual field deficit noted with confrontation. III,IV: Normal pupillary reflexes & intact extraocular movements without nystagmus. V,: Intact symmetrical facial sensation. VII: Intact symmetrical facial motor movement VIII: Hearing intact. IX,X: Intact gag, swallow, & normal voice. XI: Sternocleidomastoid, trapezius function intact. XII: Tongue midline with normal movements. L'hermitte's Sign: Negative / absent Spurling'Sign: Absent bilaterally. Cubital percussion test: Absent bilaterally. Garcia-Tinel sign - Carpal region: Absent bilaterally. Straight Leg Raising: Absent bilaterally. Crossed straight leg raise: negative O8 MOTOR EXAM (0-5/5, N/T Muscle appearance: Symmetrical, without signs of atrophy or dystrophy UPPER EXTREMITY RIGHT LEFT Shoulder Abduction 5/5 5/5 Biceps 5/5 5/5 Triceps 5/5 5/5 Wrist Extension 5/5 5/5 Hand Intrinsics 5/5 5/5 Pricing Clerk 5/5 5/5 Hand and finger dexterity intact bilaterally? yes Disdiadochokinesis examination negative bilaterally? yes LOWER EXTREMITY RIGHT LEFT Hip Flexion 4/5 4/5 Knee Extension 5/5 5/5 Knee Flexion 5/5 5/5 Dorsiflexion 4/5 4/5 Plantarflexion 4/5 4/5 EHL 5/5 5/5 FHL 5/5 5/5 Toe heel walk / heel-toe walk intact while maintaining satisfactory balance? No Squatting/straightening w/o assistance to a min of 60 degree knee flexion? No Single leg stance: intact Trendelenburg sign negative bilaterally REFLEXES(0-4/2, NT)Upper ExtremityLower Extremity Right 2 2 Left 2 2 Pathological Reflexes RIGHT LEFT Garcia's Absent Absent Clonus Absent Absent Babinski Absent Absent Sensory system (0-4, N/T) Test type RU OXANA RL LL Joint-Position 2 2 2 2 Vibration 2 2 2 2 Pain & LT sense 2 2 2 2 Dermatomal Deficit: None None L4-L5 None Gait and Functional Evaluation: Ambulatory aids:Independent Romberg's test:Intact bilaterally Steady Gait RADIOGRAPHIC STUDIES: XRay Lumbar Multiview (AP, Lateral, Flexion, Extension) with AP pelvis; 5 views taken at [facility] on 04/02/22 of Lumbar Spine and Pelvis: Images reviewed with the patient and her L4-5 Grade I, unstable spondylolisthesis with pars elongation, facet arthropathy and disc collapse. There is segmental kyphosis due to this slip. No fractures or lesions noted. LL is overall fairly well maintained. AP pelvis shows congruent level pelvis no fracture MRI [facility] of LumbarSpine: IMages reviewed with patient Spondylosis noted with spondylolisthesis of L4-5 that is partially reduced on this supine film There is severe right sided foraminal stenosis due to facet, ligamental hypertrophy and disc herniation causing this. There is central stenosis due to disc herniation and ligamental hypertrophy. Facet arthropathy noted with modic endplate changes. Boggi facets seen at L4-5 due to insufficiency and arthrosis. NO lesions note fractures noted. IMPRESSION: It was my pleasure to have seen and examined Riana. I reviewed the patient's clinical syndrome, physical findings, and imaging studies during the appointment today. It is my impression that the patient has a diagnosis of. 1. Grade 1 spondylolisthesis of L4 on L5 2.L4-L5 spondylosis with stenosis 3. Right lower extremit radiculopathy I outlined the natural course history without intervention and various interventional options. PLAN: Based on my findings I suggest the following course of action: -Advised patient to continue with supplements, health maintenance, and home exercise programs. Patient expressed understanding and will continue with these modalities. -I discussed treatment options with the patient, including operative and non- operative options, and they have elected to proceed with the following surgical procedure: L4-5 minimally invasive posterior lumbar interbody fusion The indications, risks, benefits, and alternatives to surgery were discussed with the patient and family at length. Specifically (but not limited to) the risks of infection, stiffness, recurrence of symptoms, need for revision surgery, local numbness, neurovascular injury, and blood clots were discussed. The patient's questions were answered. The decision to proceed was made. Consent will be obtained for the procedure. Spine Surgery Risk Review Ms. Mckeon is presenting for evaluation of low back pain. It was my pleasure to have seen and examined Ms. Mckeon. In our visit today we have had a chance to go over subjective complaints, physical examination findings and treatments including the natural course history without intervention and various interventional options. The patients imaging demonstrates: XRay Lumbar Multiview (AP, Lateral, Flexion, Extension) with AP pelvis; 5 views taken at [facility] on 04/02/22 of Lumbar Spine and Pelvis: Images reviewed with the patient and her L4-5 Grade I, unstable spondylolisthesis with pars elongation, facet arthropathy and disc collapse. There is segmental kyphosis due to this slip. No fractures or lesions noted. LL is overall fairly well maintained. AP pelvis shows congruent level pelvis no fracture MRI scancompleted [facility] from04/23/2022 of LumbarSpine: Images reviewed with patient Spondylosis noted with spondylolisthesis of L4-5 that is partially reduced on this supine film There is severe right sided foraminal stenosis due to facet, ligamental hypertrophy and disc herniation cuasing this. There is central stenosis due to disc herniation and ligamental hypertrophy. Facet arthropathy noted with modic endplate changes. Boggi facets seen at L4-5 due to insufficiency and arthrosis. NO lesions note fractures noted. On physical exam, Ms. Mckeon demonstrates severely restricted lumbar ROM due to pain along with bilateral lower extremity radiculopathy. Furthermore the patient does also demonstrate bilateral lower extremity weakness and right lower extremity L4-L5 dermatomal deficits. Overall functional testing is very limited due to her symptoms and she is ambulating independently. I have explained to the patient that as their condition progresses it will cause further neurological deficits and eventual paralysis. Based on the patients imaging, physical exam, and the rapid progression and disabling nature of their symptoms, at this time I recommend surgery in the form or a:L4-5 MIS PLIF. I discussed the risk and benefits of this procedure at length with Ms. Mckeon. The patient and her significant other agreed to considered pursuing the procedure above mentioned . Prior to surgery, she should follow up with her PCP (Cardio, ID, IM etc) for clearance. Questions were invited and answered, and the patient wishes to proceed as outlined below. Currently, I am recommendin.L4-5 minimally invasive posterior lumbar interbody fusion 2.Follow up with PCP for surgical clearance 3.Review of surgical risks and benefits as well as an educational packet on the proposed surgical procedure. Risks: All surgical procedures come with inherent risks, including those related to positioning, anesthesia, intraoperative findings, and postoperative complications. It is important to understand that surgery does not come with any guarantee of a successful outcome as complications and adverse events are always possible. The patient was given a handout in office today discussing the surgical procedure and risks associated with the intervention, both of which were discussed with the patient. These risks include but are not limited to the following: * Experiencing same, different or even worse symptoms in back, neck, arms, or legs compared to before surgery. Requiring further surgery or other forms of treatment presently or at some time in the future at same or other levels of the intended spine surgery. On an extreme but fortunately relatively rare basis severe complication such as blindness, stroke, heart attack, temporary and/or permanent nerve injury, paralysis, coma, or may occur, sometimes without known explanation. Surgical complications may include but are not limited to risk of infection, fluid accumulation in the surgical dissection site, including a seroma or hematoma, that requires additional surgery, wound drainage, bleeding, new numbness or weakness, vision changes/loss, spinal fluid leakage, non-healing and/or infected incision, headaches, difficulty or inability to swallow, hoarseness, hemopneumothorax, pneumothorax, impotence, retrograde ejaculation, vaginal dryness; injury to nerves, spinal cord, blood vessels, lymphatics or other vital organs (i.e., bowel injury, injury to the great vessels); heterotopic bone formation; complications related to the hardware such as screws, rods, cages including misplaced hardware, device failure, instrumentation at the wrong spine level, hardware fracture/breakage, or hardware loosening; vertebral failure of the spinal column above or below the newly placed hardware; retained surgical instrumentations or devices and the need for further surgery. * Medical risks of the planned spine surgery include but are not limited to generalized Infections to the whole body or local areas outside of the surgical site (sepsis), heart attack, bleeding, anaphylaxis, meningitis, seizure, epilepsy, hearing loss, burn henriquez, laceration of the head or other areas of the body, bruising, hypersensitivity of the skin, bladder over distension; allergic reaction; shoulder injury related to positioning; fat, blood and air clots to other areas of the body like heart, lungs, brain; failure of internal organs such as lungs, kidneys, liver and excessive bleeding. If blood transfusions are necessary, note that transfusions may cause intolerance reactions such as anaphylaxis or other complex reactions. Despite best efforts, the results of spine surgery might not heal in terms of bone, soft tissues such as skin, fascia, ligaments, and joints. Additionally, in order to achieve best possible results, spine surgery may be carried out beyond the initially planned levels and involve decompression, fusion including insertion of hardware at levels other than the original intended area of surgical interest change some portions of the procedure in order to ensure the best possible outcomes. With spine surgery and spinal fusion, there are different off label uses of instrumentation (devices, implants and hardware) as well as biological substances (bone morphogenic proteins, demineralized bone matrix) as well as using extra bone from allograft sources (i.e. cadaver bone) or autograft (iliac crest bone, ribs, or the spine itself). The patient has been given information about these practices and their inherent risks and benefits. [facility] is an educational center that serves as a training facility for neurosurgical and orthopedic [employer] and Nursing students. Physician assistants are medically trained surgical providers who function in the outpatient, inpatient, and operating room setting under the direct supervision of the attending surgeon. [facility] has multiple operating rooms with single and overlapping rooms running daily. They currently function under the required guidelines as produced by the [facility] Finance Committee with regards to the overlapping rooms and will continue to comply with changes to this policy as they occur. The requirements include and are complied with as follows: (1) the critical portions of the overlapping rooms will not occur at the same time, (2) the attending physician will be physically present during the critical portions of the procedure and immediately available during the entire case, and (3) a back-up attending is designated should the primary attending not be immediately available. The patient has had a chance to review all the listed information, has been given print outs detailing this information, and has had all his/her questions answered to their satisfaction. It was my pleasure to have seen and examined Ms. Mckeon. In our visit today we have had a chance to go over my understanding of our patient's current condition, the natural course history without intervention and various interventional options. Questions were invited and answered, and the patient wishes to proceed as outlined above. I have seen and examined the patient for 25 minutes and we have spent more than 50% of the time in repeat and detailed counseling about the patient's condition, its natural course history with out and as much as can be predicted with surgery and re-review of various surgical treatment options. In conclusion, Ms. Mckeon and her spouse requested we proceed with the above suggested surgery and are willing to accept risks and limitations of the suggested surgery as nature of the disease process and our best attempts at treatment for the condition. Thank you again for allowing us to be part of your patient's care. Please don't hesitate to contact me if you have any further questions. Signed and authenticated by: [employer] P:\\\\ppart\\\\Files\\\\[id number]\\\\[id number]\\\\[id number] \\d Follow-up: Post procedure Patient Education: (Informational booklet, instructions, etc) given at today's appointment: Yes .ED:Patient Education: Y Medications Reviewed: YES In our visit today Ms. Mckeon and I have had a chance to go over my understanding of the patient's current condition, the natural course history without intervention and various interventional options. Questions were invited and answered, and the patient wishes to proceed as outlined above. I will be sure to keep you updated afterMs. Mckeon returns here for further follow-up. Thank you again for your referral. Please do not hesitate to contact me if you have any further questions. Signed and authenticated by: Aj Muhammad DO Brig[facility] [address] [phone] This message is confidential, intended only for the named recipient(s) and may contain information that is privileged or exempt from disclosure under applicable law. If you are not the intended recipient(s), you are notified that the dissemination, distribution or copying of this information is strictly prohibited. If you received this message in error, please notify the sender then delete this message. Patient verbalizes understanding of the information discussed. The above note was initiated by Cleo Hugo, physician recording senior assistant manager for Dr. Aj Muhammad. This note has been reviewed by Dr. Muhammad, who has made his personal changes and impressions for this document. CC: Stephany Alejandro M.D. # SIGNED BY Aj Muhammad ([facility])02/11/2023 10:48AM Past Medical History Past Medical History: Diabetes Mellitus, Hyperlipidemia, Hypertension, Neurologic Disorder, Osteoarthritis (OA), Thyroid Disorder Additional Past Medical History / Comment(s): "I have a disc out of place", chronic back pain, seasonal allergies, neuropathy to feet, RECENT DKA ABOUT 3 WEEKS AGO-WAS IN [place] THEN TRANSFERRED TO [facility]. History of Any Multi-Drug Resistant Organisms: None Reported Past Surgical History: Appendectomy, Section Additional Past Surgical History / Comment(s): c sections x2, cyst removed from wrist, COLONOSCOPY Past Anesthesia/Blood Transfusion Reactions: No Reported Reaction Additional Past Anesthesia/Blood Transfusion Reaction / Comment(s): Pt has never received a blood transfusion. Smoking Status: Former smoker - Past Family History Mother Family Medical History: No Reported History Father Additional Family Medical History / Comment(s): depression Medications and Allergies Home Medications Medication Instructions Recorded Confirmed Type Insulin Aspart (Niacinamide) 0 unit SQ CONTINUOUS 06/30/22 03/02/23 History [Fiasp Penfill 100 Unit/ml Cart] Gabapentin [Neurontin] 400 mg PO BID 07/01/22 03/02/23 History Levothyroxine Sodium [Synthroid] 75 mcg PO QAM 07/01/22 03/02/23 History Semaglutide [Ozempic] 1 mg SQ WE 11/04/22 03/02/23 History Melatonin [Melatonin ER] 30 mg PO HS 02/06/23 03/02/23 History Atorvastatin [Lipitor] 40 mg PO HS 03/02/23 03/02/23 History Furosemide [Lasix] 20 mg PO DAILY 03/02/23 03/02/23 History Metoprolol Tartrate [Lopressor] 50 mg PO BID 03/02/23 03/02/23 History Potassium Chloride [K-Tab ER] 20 meq PO DAILY 03/02/23 03/02/23 History Allergies Allergy/AdvReac Type Severity Reaction Status Date / Time latex Allergy Rash/Hives Verified 03/02/23 15:50 Penicillins Allergy Rash/Hives Verified 03/02/23 15:50 codeine AdvReac Nausea & Verified 03/02/23 15:50 Vomiting Physical Examination Osteopathic Statement: *. No significant issues noted on an osteopathic structural exam other than those noted in the History and Physical/Consult.
[2023-03-05] MEDS ORDERED: DEXAMETHASONE SOD PHOSPHATE 4 MG/ML 1 ML VIAL IV ONE (13:29)
[2023-03-05] MEDS ORDERED: fentaNYL (PF) 50 MCG/ML 2 ML AMP IV PRN (13:29)
[2023-03-05] MEDS ORDERED: ONDANSETRON 4 MG/2 ML VIAL IVP ONE (13:29)
[2023-03-05 14:11] LABS: Glucose,Whole Blood 141 mg/dL (70-110)
[2023-03-05] MEDS: LACTATED RINGERS 1,000 ML IV SCH (14:14)
[2023-03-05] MEDS ORDERED: MIDAZOLAM 2 MG/2 ML VIAL IV ONE ×2 (14:16→14:25)
--- NOTE | 2023-03-05 15:09 | P.ANPRN ---
Procedure Note - Anesthesia - Invasive Line Right Central Line Date of Procedure: 03/05/23 Time of Procedure: 14:32 Location of Patient: PreOp Preparation: Sterile Prep, Sterile Dressing Central Line Location: Internal Jugular Ultrasound Used: Yes Purpose - Visualization and Identification of Vasculature: Yes Image Stored and Saved: Yes Narrative: Central line placement per sterile protocol utilized. 7 Fr triple lumen cath
--- NOTE | 2023-03-05 15:36 | XR ---
EXAMINATION TYPE: XR chest 1V portable DATE OF EXAM: 03/05/2023 Comparison: None Clinical History: 62-year-old female central line placement Findings: Heart upper limits of normal in size. Mild hyperinflation. Some strandy atelectasis in the lower lung s. No consolidation or pleural effusion. Right CVC tip at the mid to lower SVC level. No appreciable pneumothorax. Impression: Right-sided CVC tip at the mid to lower SVC level. Possible underlying COPD. No acute process seen.
[2023-03-05] MEDS ORDERED: fentaNYL (PF) 50 MCG/ML 2 ML AMP ONE (16:32)
[2023-03-05] MEDS ORDERED: ROCURONIUM 10 MG/ML (5 ML VIAL) IV ONE (16:32)
[2023-03-05] MEDS ORDERED: KETAMINE 10 MG/ML 20 ML VIAL ONE (16:32)
[2023-03-05] MEDS ORDERED: NEOSTIGMINE 1 MG/ML 10 ML VIAL ONE (16:32)
[2023-03-05] MEDS ORDERED: SUCCINYLCHOLINE CHLORIDE 200 MG/10 ML VIAL IV ONE (16:32)
[2023-03-05] MEDS ORDERED: PHENYLEPHRINE-0.9% NACL SYG 1,000 MCG/10 ML SYRINGE ONE (16:32)
[2023-03-05] MEDS ORDERED: LIDOCAINE 2% INJ 20 MG/ML (2 ML VIAL) ONE (16:32)
[2023-03-05] MEDS ORDERED: GLYCOPYRROLATE 0.2 MG/ML 2 ML VIAL ONE (16:32)
[2023-03-05] MEDS ORDERED: PROPOFOL 10 MG/ML 20 ML VIAL IV ONE (16:32)
[2023-03-05] MEDS ORDERED: ceFAZolin 3,000 MG in SODIUM CHLORIDE 0.9% IRRIGATIO 3,000 ML IRRIGATION ONE (16:38)
[2023-03-05] MEDS ORDERED: GENTAMICIN 80 MG in SODIUM CHLORIDE 0.9% IRRIGATIO 3,000 ML IRRIGATION ONE (16:38)
[2023-03-05] MEDS ORDERED: LACTATED RINGERS 1,000 ML IV ONE ×2 (16:38→18:35)
[2023-03-05 17:12] LABS: Glucose,Whole Blood 179 mg/dL (70-110)
[2023-03-05] MEDS ORDERED: BUPIVACAINE (PF) 0.25% 30 ML VIAL SQ ONE (17:45)
[2023-03-05] MEDS ORDERED: THROMBIN (BOVINE) 5,000 UNIT VIAL MISCELLANE ONE (17:46)
[2023-03-05] MEDS ORDERED: GELATIN SPONGE,ABSORB (LARGE) 1 EACH SPONGE MISCELLANE ONE (17:46)
[2023-03-05] MEDS ORDERED: VANCOMYCIN 1,000 MG VIAL MISCELLANE ONE (18:29)
[2023-03-05] MEDS ORDERED: HYDROcodone/APAP 5-325MG 1 EACH TAB PO PRN (19:00)
[2023-03-05] MEDS ORDERED: ONDANSETRON 4 MG/2 ML VIAL IVP PRN (19:00)
[2023-03-05] MEDS ORDERED: CYCLOBENZAPRINE 5 MG TAB PO PRN (19:00)
[2023-03-05] MEDS ORDERED: HYDROmorphone 0.5 MG/0.5 ML SYRINGE IVP PRN (19:00)
[2023-03-05] MEDS ORDERED: MAGNESIUM HYDROXIDE 2,400 MG/30 ML CUP PO PRN (19:00)
[2023-03-05] MEDS ORDERED: VANCOMYCIN IV PER PHARMACY 1 EACH MISC MISCELLANE PRN (19:04)
--- NOTE | 2023-03-05 19:13 | FL ---
EXAMINATION TYPE: FL guidance operating room DATE OF EXAM: 03/05/2023 Comparison: None Clinical History: 62-year-old female LUMBAR FUSION Findings: Imaging during lumbar fusion. FLUOROSCOPY Fluoroscopy time of 57 seconds was used during lumbar fusion. 0 image/s document/s the procedure. D OSE AREA PRODUCT (DAP) UGY*M,MGY*CM: 5.611 Impression: Intraoperative fluoroscopy as above.
[2023-03-05] MEDS ORDERED: HYDROmorphone 0.5 MG/0.5 ML SYRINGE IVP ONE ×3 (19:15→19:44)
[2023-03-05 19:26] LABS: Glucose,Whole Blood 223 mg/dL (70-110)
--- NOTE | 2023-03-05 20:33 | XR ---
EXAMINATION TYPE: FL guidance operating room DATE OF EXAM: 03/05/2023 CLINICAL INDICATION: PH[facility]; LUMBAR FUSION TECHNIQUE: Fluoroscopy. COMPARISON: None. FINDINGS: Fluoroscopic guidance was provided during procedure performed by Dr. Muhammad. A total of 57 seconds of fluoroscopic time was utilized during the procedure and 5 spot images were acquired. Total dose area product (DAP): 5.6109 Gycm2. IMPRESSION: As Above.
[2023-03-05 21:07] LABS: Glucose,Whole Blood 297 mg/dL (70-110)
[2023-03-05] MEDS ORDERED: DEXTROSE 50% SYRINGE 50 ML IVP PRN ×2 (21:52)
[2023-03-05] MEDS ORDERED: INSULIN DETEMIR (LEVEMIR) 100 UNIT/ML SYR SQ SCH (22:00)
[2023-03-05] MEDS: DEXAMETHASONE SOD PHOSPHATE 4 MG/ML 1 ML VIAL IVP SCH (23:18)
[2023-03-05] MEDS: HYDROmorphone 1 MG/ML 1 ML SYRINGE IVP PRN (23:19)
[2023-03-05] MEDS: SODIUM CHLORIDE 0.9% 1,000 ML IV SCH (23:20)
[2023-03-05] MEDS ORDERED: INSULIN ASPART (NovoLOG) 100 UNIT/ML VIAL SQ PRN (23:55)
[2023-03-05] MEDS ORDERED: INSPUCOR MISCELLANE PRN (23:55)
[2023-03-05] MEDS ORDERED: INSULIN PUMP BASAL RATES 1 EACH MISC MISCELLANE PRN (23:55)
[2023-03-06] MEDS: DEXAMETHASONE SOD PHOSPHATE 4 MG/ML 1 ML VIAL IVP SCH ×4 (00:05→17:32)
[2023-03-06 02:38] LABS: Glucose,Whole Blood 218 mg/dL (70-110)
[2023-03-06] MEDS: HYDROmorphone 1 MG/ML 1 ML SYRINGE IVP PRN ×3 (04:24→19:07)
[2023-03-06] MEDS: VANCOMYCIN 1,250 MG in SODIUM CHLORIDE 0.9% 250 ML IVPB SCH ×2 (05:47→17:40)
[2023-03-06] MEDS: HYDROcodone/APAP 7.5-325MG 1 EACH TAB PO PRN ×3 (05:48→23:41)
[2023-03-06 06:17] LABS: Glucose,Whole Blood 113 mg/dL (70-110)
[2023-03-06] MEDS ORDERED: INSULIN ASPART (NovoLOG) 100 UNIT/ML VIAL SQ SCH (07:30)
[2023-03-06 08:03] LABS: Anisocytosis Slight; Basophils % (A) 0 %; Eosinophils # (A) 0.1 k/uL (0-0.7); Eosinophils % (A) 2 %; HCT 27.3 % (34.0-46.0); HGB 8.6 gm/dL (11.4-16.0); Hypochromasia Moderate; Lymphocytes # (A) 1.5 k/uL (1.0-4.8); Lymphocytes % (A) 24 %; MCH 34.5 pg (25.0-35.0); MCHC 31.6 g/dL (31.0-37.0); Macrocytosis Marked; Mean Platelet Volume 6.9; Monocytes # (A) 0.5 k/uL (0-1.0); Monocytes % (A) 8 %; Neutrophils # (A) 4.1 k/uL (1.3-7.7); Neutrophils % (A) 65 %; Platelet Count 451 k/uL (150-450); RBC 2.51 m/uL (3.80-5.40); RDW 16.3 % (11.5-15.5); WBC 6.2 k/uL (3.8-10.6)
[2023-03-06 08:27] LABS: African American GFR (CKD) >90 (>60 ml/min/1.73 sqM); Anion Gap 6 mmol/L; Blood Urea Nitrogen 22 mg/dL (7-17); Calcium 9.3 mg/dL (8.4-10.2); Carbon Dioxide 22 mmol/L (22-30); Chloride 105 mmol/L (98-107); Glucose 106 mg/dL (74-99); Non-African American GFR(CKD) 86 (>60 ml/min/1.73 sqM); Potassium 4.4 mmol/L (3.5-5.1); Sodium 133 mmol/L (137-145)
--- NOTE | 2023-03-06 08:55 | CT ---
EXAMINATION TYPE: CT lumbar spine wo con DATE OF EXAM: 03/05/2023 COMPARISON: Correlation MRI 04/23/2022 HISTORY: 62-year-old female s/p L4-L5 decompression and fusion TECHNIQUE: Contiguous axial scanning of the lumbar spine without IV contrast. Coronal and sagittal re constructions performed. CT DLP: 873.3 mGycm Automated exposure control for dose reduction was used. FINDINGS: Mild generalized anasarca change. Severe distention of the urinary bladder. Correlate to exclude urin césar retention. There are recent postsurgical changes of L4-L5 posterior and interbody fusion with fixed grade 1 ante rolisthesis and corresponding laminectomies. Concurrent bilateral foraminotomies. The orthopedic hard cueot appears properly positioned. Metal artifact from the hardware limits detailed assessment of the spinal canal at the surgical levels. Foci of air in the epidural space, posterior soft tissues, laminectomy bed, and subcutaneous region r elated to recent operation. Surgical drain is present in the laminectomy bed. Overlying midline skin shereen. Mild to moderate degenerative disc disease elsewhere throughout the lumbar spine. Trace grade 1 retrolisthesis L1-L2. There appears to be mild overall narrowing of the spinal canal due to disc bulge at L1-L2. Disc bulge at L3-L4, above the fusion contiguous to mild narrowing of the spinal canal as well. On the left, residual mild neuroforaminal narrowing at the fused L4-L5 level. Also at multiple additi onal levels throughout the lumbar spine. On the right, more moderate narrowing above the fusion L3-L4. Mild narrowing at L4-L5. IMPRESSION: 1. RECENT POSTOPERATIVE CHANGES OF L4-L5 posterior and interbody fusion with fixed grade 1 anterolist hesis. Bilateral foraminotomies and laminectomies as well. Residual mild neuroforaminal narrowing on both sides. 2. Tpqy-sl-mbvcvuwy multilevel degenerative disc disease elsewhere throughout the lumbar spine. Degen erative grade 1 retrolisthesis L1-L2. Mild narrowing of the spinal canal at this level. Mild narrowin g canal also at L3-L4. 3. Moderate narrowing of the right L3-L4 neuroforamen. Otherwise, scattered variable mild neural fora jacquelyn throughout. 4. Marked distention of the urinary bladder. Please correlate to a exclude urinary retention.
[2023-03-06] MEDS: SENNOSIDES-DOCUSATE SODIUM 1 EACH TAB PO SCH (09:18)
--- NOTE | 2023-03-06 09:22 | P.OP ---
Date of Procedure: 03/05/23 Preoperative Diagnosis: 1. L4-5 spondylolisthesis Grade I-II unstable 2. Severe stenosis with radiculopathy and LE weakness L4-5 3. Low back pain 4. LE paresthesia Postoperative Diagnosis: 1. L4-5 spondylolisthesis Grade I-II unstable 2. Severe stenosis with radiculopathy and LE weakness L4-5 3. Low back pain 4. LE paresthesia Procedure(s) Performed: 1. Posterior lateral and interbody fusion L4-L5 [32407] 2. Instrumentation L4-L5 [72978] 3. Insertion of biomechanical device L4-L5 [16598] Use of intraoperative neuro monitoring Implants: -Globus Crego screws -Life spine prolift cage -MagnetOs, Arthrocell, iFactor, Autograft Anesthesia: GETA Surgeon: Aj Muhammad Kiss Machine Operator #1: Samantha Razo (Was present and assisted with all aspects of the case from positiong to closure. ) Estimated Blood Loss (ml): 150 IV fluids (ml): 800 Urine output (ml): 250 Pathology: none sent Condition: stable Disposition: PACU Indications for Procedure: Ms. Mckeon is presenting for evaluation of low back pain. It was my pleasure to have seen and examined Ms. Mckeon. In our visit today we have had a chance to go over subjective complaints, physical examination findings and treatments including the natural course history without intervention and various interventional options. The patients imaging demonstrates: XRay Lumbar Multiview (AP, Lateral, Flexion, Extension) with AP pelvis; 5 views taken at [facility] on 04/02/22 of Lumbar Spine and Pelvis: Images reviewed with the patient and her L4-5 Grade I, unstable spondylolisthesis with pars elongation, facet arthropathy and disc collapse. There is segmental kyphosis due to this slip. No fractures or lesions noted. LL is overall fairly well maintained. AP pelvis shows congruent level pelvis no fracture [facility] of LumbarSpine: Images reviewed with patient Spondylosis noted with spondylolisthesis of L4-5 that is partially reduced on this supine film There is severe right sided foraminal stenosis due to facet, ligamental hypertrophy and disc herniation cuasing this. There is central stenosis due to disc herniation and ligamental hypertrophy. Facet arthropathy noted with modic endplate changes. Boggi facets seen at L4-5 due to insufficiency and arthrosis. NO lesions note fractures noted. On physical exam, Ms. Mckeon demonstrates severely restricted lumbar ROM due to pain along with bilateral lower extremity radiculopathy. Furthermore the patient does also demonstrate bilateral lower extremity weakness and right lower extremity L4-L5 dermatomal deficits. Overall functional testing is very limited due to her symptoms and she is ambulating independently. I have explained to the patient that as their condition progresses it will cause further neurological deficits and eventual paralysis. Based on the patients imaging, physical exam, and the rapid progression and disabling nature of their symptoms, at this time I recommend surgery in the form or a:L4-5 MIS PLIF. I discussed the risk and benefits of this procedure at length with Ms. Mckeon. The patient and her significant other agreed to considered pursuing the procedure above mentioned . Prior to surgery, she should follow up with her PCP (Cardio, ID, IM etc) for clearance. Questions were invited and answered, and the patient wishes to proceed as outlined below. Currently, I am recommendin.L4-5 minimally invasive posterior lumbar interbody fusion Description of Procedure: L4-5 open PLIF The patient was seen and examined in the preoperative area.All preoperative protocols were followed.Informed consent was obtained, risks and benefits of the procedure were discussed at length.Risks including bleeding infection damage to the surrounding tissue and risk of re-operation were discussed with the patient.Risk of anesthesia up to and including was discussed with the patient.These are outlined in the risk review.They were willing to accept these risks and all the risks of surgery.The patient was given a weight-based dose of antibiotics in the form of 2 g Ancef.The patient was seen and evaluated by the anesthesia team who deemed them fit for surgery. The site was marked, the patient was willing to proceed with the procedure. The patient was transferred to the operative suite by the Department of anesthesia. They were then drifted off to sleep by the department anesthesia and GETA was performed. The patient tolerated this well. Weiss catheter was placed by nursing staff, a-traumatically. Once confirmation of lines and ventilation the patient was transferred to a prone Rubio table very carefully. All bony prominences including wrists, elbows, axilla, chest, hips, and thighs, and feet were padded very well. Special attention was paid to the genitalia, and these were padded accordingly. SCDs were placed on bilateral lower extremities and were connected. Arms were well padded and placed on arm boards up and out in the 90/90 position. Once in position, again we confirmed good ventilation capabilities and that lines were running appropriately. The patients Lumbar spine was then exposed. 1010s were placed outlining the incision site. Standard alcohol was used to clean the incision site and allowed to dry. C-arm was used to needle localize the pedicles at L4-S1 and bio-rochelle the patient and confirm level for incision which was marked with a skin marker. Operative briefing was performed with all teams and everyone in agreement to proceed. The patient was then prepped and draped in a normal sterile fashion. Timeout was then performed, and all parties agreed with the procedure to be performed. Midline skin incision was made over the previously bio-marked area and dissection taken down over the SP of L3-S1. L4-S1 was taken out over facet joints and TPs and a penfield 4 used to rochelle the L4 pedicle. Lateral image used to confirm levels. Once levels were confirmed screws were proceeded to place bilaterally at L4 and L5 using a freehand technique and lateral fluoroscopy. I see patricio was used to create fighter pilot hole pedicle finder was then placed followed by a feeler. Once confirmed in good position the screw was then placed under lateral fluoroscopy. AP fluoroscopy confirmed safe placement of screws. The wound was then irrigated. Screws were tested and all tested and tested above 20 mA. The right L5 tested slightly lower at 10 mA but was safe. We then proceeded to decompression and cage placement. Attention was then turned to inter-body fusion at L4-5. Bilateral laminectomy, complete facetectomy and foraminotomy performed at L4-5 using high speed patricio and Kerrison rongure. The ligamentum was removed and dural sac decompressed. Exiting and traversing roots visualized and decompressed.There is exuberant scar tissue formation in this area as well as cyst formation due to the slip. This was carefully dissected off the nerves. Neural elements were then protected, and disc space accessed with an osteotome. Sequential shaving then done under lateral imaging and complete discectomy performed using vazquez, pituitary and curette. Once good bleeding endplates accomplished and good height moravian with trials, a combination of autograft, allograft and synthetic placed anterior in the disc space. The cage was then selected and impacted into place under lateral imaging. The cage was then expanded restoring height, lordosis and alignment. The cage was backfilled with bone graft through a funnel. The nurse ldr removed and area inspected. Good cage placement, stable cage and no injuries. Area was irrigated copiously, and meticulous hemostasis achieved. The tubular retractor was then removed under direct visualization. The wound and disc spaces irrigated and meticulous hemostasis achieved. Rods were then sized and selected and placed into L5 screws b/l. Set screws locked these in place and then sequentially reduced into L4 b/l for reduction of listhesis. This was accomplished. Set screws were then all placed and final tightened. A cross link was selected and placed and final tightened. TPs were then decorticated with high speed patricio. The wound was the irrigated with 3L acne irrigation, 3L gentamicin irrigation and 3L NSS. Surgical was placed over the dura. Autograft and MagnatOs then placed in the posteriolateral gutters and impacted into place. Deep drain placed and secured to the skin. 2 g vancomycin powder placed within the wound. Final images confirmed good placement of hardware and good reduction of listhesis as well as moravian of height and lordosis. Facia was then closed with #1 PDS. Deep subq closed with 0 Vicryl. Superficial subq closed with 2-0 Vicryl and skin with shereen. Wound edges approximated very well. Wound was then cleaned with alcohol and dried. Wounds dressed with Optifoam dressings. The patient was then transferred off the table back to their hospital bed a- traumatically.They were extubated by the department of anesthesia.They were then transferred to PACU in stable condition having tolerated the procedure with no complications.
--- NOTE | 2023-03-06 10:37 | P.PN ---
Subjective Progress Note Date: 03/06/23 Principal diagnosis: 1. Grade 1 spondylolisthesis of L4 on L5 2.L4-L5 spondylosis with stenosis 3. Right lower extremity radiculopathy Patient seen and examined this morning. Patient is sitting up in the chair eating breakfast. Patient reports that her pain is managed on current regimen. Patient does report improvement in her symptoms since procedure. She states she notices a decrease of numbness and tingling into the right lower extremity. Surgical dressing to the lumbar spine is clean dry and intact with Hemovac present, output of 140 mL overnight. Informed patient that physical therapy would be and work with her today. Patient is wanting to go home with home care at discharge. Patient has been afebrile, denies nausea/vomiting, or chest pain. Objective - Vital Signs Vital signs: Vital Signs Temp 97.8 F 03/06/23 02:00 Pulse 106 H 03/06/23 03:39 Resp 16 03/05/23 20:15 BP 160/75 03/06/23 02:00 Pulse Ox 99 03/06/23 02:00 FiO2 Intake & Output 03/05/23 03/06/23 03/06/23 18:59 06:59 18:59 Intake Total 1452 850 Output Total 150 1900 Balance 1302 -1050 Weight 68.039 kg Intake: IV 1452 0 Intake, IV Titration 850 Amount Sodium Chloride 0.9% 1, 600 000 ml @ 50 mls/hr IV . Q20H PAUL Rx#:[id number] Vancomycin 1,250 mg In 250 Sodium Chloride 0.9% 250 ml @ 125 mls/hr IVPB Q12H PAUL Rx#:[id number] Output: Drainage 200 Back 200 Urine 1700 Straight 1700 Estimated Blood Loss 150 Other: # Voids 2 - Exam Physical Examination General: The patient is awake and alert, in no acute distress Skin: Skin is warm and dry with no obvious rashes or lesions. Surgical incision to the lumbar spine. Dressing is clean dry and intact, Hemovac is present and patent. Eye: Pupils are equal, round and reactive to light, extra-ocular movements are intact; there is normal conjunctiva bilaterally. Neck: The neck is supple, there is no tenderness and ROM intact. Cardiovascular: There is a regular rate and rhythm. No murmur, rub or gallop is appreciated. Respiratory: Lungs are clear to auscultation, respirations are non-labored, breath sounds are equal. Gastrointestinal: Soft, non-distended, non-tender abdomen. Back: There is no tenderness to palpation in the midline, paralumbar, parathoracic or buttocks region. There is no obvious deformity . Musculoskeletal: ROM limited secondary to pain and stiffness from surgical procedure. Muscle strength in all major muscle groups of bilateral upper extremities 5/5, bilateral lower extremities 4/5. Neurological: CN 2-12 intact. There are no obvious motor or sensory deficits. Movement and coordination equal and intact. Sensory exam to light touch intact C5-T1 and intact from L2-S1. Reflexes 2/4 in bilateral upper and lower extremities. Negative Hoffmans, babinski, and clonus signs. Psychiatric: Cooperative, appropriate mood & affect, normal judgment. - Labs CBC & Chem 7: 03/06/23 07:45 03/06/23 07:45 Labs: Abnormal Lab Results - Last 24 Hours (Table) 03/05/23 03/05/23 03/05/23 Range/Units 14:01 17:10 19:24 RBC (3.80-5.40) m/uL Hgb (11.4-16.0) gm/dL Hct (34.0-46.0) % MCV (80.0-100.0) fL RDW (11.5-15.5) % Plt Count (150-450) k/uL Macrocytosis Sodium (137-145) mmol/L BUN (7-17) mg/dL Glucose (74-99) mg/dL POC Glucose (mg/dL) 141 H 179 H 223 H (70-110) mg/dL 03/05/23 03/06/23 03/06/23 Range/Units 21:06 02:29 06:16 RBC (3.80-5.40) m/uL Hgb (11.4-16.0) gm/dL Hct (34.0-46.0) % MCV (80.0-100.0) fL RDW (11.5-15.5) % Plt Count (150-450) k/uL Macrocytosis Sodium (137-145) mmol/L BUN (7-17) mg/dL Glucose (74-99) mg/dL POC Glucose (mg/dL) 297 H 218 H 113 H (70-110) mg/dL 03/06/23 03/06/23 Range/Units 07:45 07:45 RBC 2.51 L (3.80-5.40) m/uL Hgb 8.6 L (11.4-16.0) gm/dL Hct 27.3 L (34.0-46.0) % MCV 109.0 H (80.0-100.0) fL RDW 16.3 H (11.5-15.5) % Plt Count 451 H (150-450) k/uL Macrocytosis Marked A Sodium 133 L (137-145) mmol/L BUN 22 H (7-17) mg/dL Glucose 106 H (74-99) mg/dL POC Glucose (mg/dL) (70-110) mg/dL Assessment and Plan Assessment: Postop day 1: Open L4-L5 posterior lateral interbody fusion 1. Grade 1 spondylolisthesis of L4 on L5 2.L4-L5 spondylosis with stenosis 3. Right lower extremity radiculopathy Plan: -Appreciate treasury management sales consultant and team management. -Activity: Ambulate QID, OOB all meals, up and about, limit lifting bending twisting to less than 5 lbs. Use walker or cane if needed for stability. -Daily PT/OT, increase ambulation strength and balance. -Brace when up and about, not needed in bed or chair -Prescription left in chart for LSO brace -Pain control: Adequate at this time -Meds: reviewed -GI ppx: senna, Miralax -DVT PPX: OK to restart Heparin tonight -Hygiene: Shower today. Maintain dressing clean and dry. Meticulous cleaning after BMs away from the incision site -Drains: Maintain for now. Continue to monitor and record output. -Encourage IS 10x/hr -Dispo: Anticipate discharge home with homecare in 24-48hrs *I reviewed and discussed this case with my attending Dr. Muhammad, whom has reviewed this chart and films and is in agreement with assessment and plan of care as outlined above. I have personally seen and examined the patient, performed the documentation and the assessment and plan as written. Number of minutes spent on the visit: 15m.
[2023-03-06 12:02] LABS: Glucose,Whole Blood 170 mg/dL (70-110)
[2023-03-06] MEDS: LACTATED RINGERS 1,000 ML IV SCH (12:53)
--- NOTE | 2023-03-06 14:49 | P.CONS ---
History of Present Illness - Reason for Consult Consult date: 03/06/23 Medical management - History of Present Illness Reason for consult; medical management History of present illness; patient is 62-year-old lady with past medical history significant for back pain who presented to the hospital for elective L4- 5 minimally invasive posterior lumbar interbody fusion. Patient was being seen outpatient by orthopedics for her persistent back pain, continues to experience worsening lumbar spine pain that radiates down into the right lower extremity, associated with numbness and tingling. She notes this pain has been increasing over the last 1 year without any known injury or trauma. She has trialed several injections with no lasting relief of her symptoms. Orthopedic discussed with patient and decided that patient will go for surgical intervention. Postoperatively the medicine team was consulted for medical management REVIEW OF SYSTEMS: CONSTITUTIONAL: No fever, no malaise, no fatigue. HEENT: No recent visual problems or hearing problems. Denied any sore throat. CARDIOVASCULAR: No chest pain, orthopnea, PND, no palpitations, no syncope. PULMONARY: No shortness of breath, no cough, no hemoptysis. GASTROINTESTINAL: No diarrhea, no nausea, no vomiting, no abdominal pain. NEUROLOGICAL: No headaches, no weakness, no numbness. HEMATOLOGICAL: Denies any bleeding or petechiae. GENITOURINARY: Denies any burning micturition, frequency, or urgency. MUSCULOSKELETAL/RHEUMATOLOGICAL: Complaining of back pain ENDOCRINE: Denies any polyuria or polydipsia. The rest of the 14-point review of systems is negative. PHYSICAL EXAMINATION: GENERAL: The patient is alert and oriented x3, not in any acute distress. Well developed, well nourished. HEENT: Pupils are round and equally reacting to light. EOMI. No scleral icterus. No conjunctival pallor. Normocephalic, atraumatic. No pharyngeal erythema. No thyromegaly. CARDIOVASCULAR: S1 and S2 present. No murmurs, rubs, or gallops. PULMONARY: Chest is clear to auscultation, no wheezing or crackles. ABDOMEN: Soft, nontender, nondistended, normoactive bowel sounds. No palpable organomegaly. MUSCULOSKELETAL: No joint swelling or deformity. EXTREMITIES: No cyanosis, clubbing, or pedal edema. NEUROLOGICAL: Gross neurological examination did not reveal any focal deficits. SKIN: No rashes. Assessment and plan Grade 1 spondylolisthesis of L4 on L5 status post Posterior lateral and interbody fusion L4-L5 L4-L5 spondylosis with stenosis Right lower extremity radiculopathy Hyperlipidemia Hypertension Hypothyroidism Monitor vital signs Monitor CBC Continue pain management per orthopedics Continue postoperative antibiotics per orthopedics Continue Lasix Continue Lopressor Continue Synthroid PT and OT consulted Patient is diabetic, uses insulin pump, currently using it without any problem. Past Medical History Past Medical History: Diabetes Mellitus, Hyperlipidemia, Hypertension, Neurologic Disorder, Osteoarthritis (OA), Thyroid Disorder Additional Past Medical History / Comment(s): "I have a disc out of place", chronic back pain, seasonal allergies, neuropathy to feet, RECENT DKA ABOUT 3 WEEKS AGO-WAS IN [place] THEN TRANSFERRED TO [facility]. Dm Type 1 on insu cammy pump History of Any Multi-Drug Resistant Organisms: None Reported Past Surgical History: Appendectomy, Section Additional Past Surgical History / Comment(s): c sections x2, cyst removed from wrist, COLONOSCOPY Past Anesthesia/Blood Transfusion Reactions: No Reported Reaction Additional Past Anesthesia/Blood Transfusion Reaction / Comm: Pt has never received a blood transfusion. Past Psychological History: No Psychological Hx Reported Additional Psychological History / Comment(s): Pt resides with spouse and jg. She uses a cane or walker. Smoking Status: Former smoker Past Alcohol Use History: None Reported Additional Past Alcohol Use History / Comment(s): drinks approx 2 ounces vodka per day-PT STATES LAST HAD ABOUT 6 MONTHS AGO. quit smoking 20 yrs ago smoked 2 ppd Past Drug Use History: None Reported - Past Family History Mother Family Medical History: No Reported History Father Additional Family Medical History / Comment(s): depression Medications and Allergies Home Medications Medication Instructions Recorded Confirmed Type Insulin Aspart (Niacinamide) 0 unit SQ CONTINUOUS 06/30/22 03/02/23 History [Fiasp Penfill 100 Unit/ml Cart] Gabapentin [Neurontin] 400 mg PO BID 07/01/22 03/02/23 History Levothyroxine Sodium [Synthroid] 75 mcg PO QAM 07/01/22 03/02/23 History Semaglutide [Ozempic] 1 mg SQ WE 11/04/22 03/02/23 History Melatonin [Melatonin ER] 30 mg PO HS 02/06/23 03/02/23 History Atorvastatin [Lipitor] 40 mg PO HS 03/02/23 03/02/23 History Furosemide [Lasix] 20 mg PO DAILY 03/02/23 03/02/23 History Metoprolol Tartrate [Lopressor] 50 mg PO BID 03/02/23 03/02/23 History Potassium Chloride [K-Tab ER] 20 meq PO DAILY 03/02/23 03/02/23 History Allergies Allergy/AdvReac Type Severity Reaction Status Date / Time latex Allergy Rash/Hives Verified 03/05/23 13:39 Penicillins Allergy Rash/Hives Verified 03/05/23 13:39 codeine AdvReac Nausea & Verified 03/05/23 13:39 Vomiting Physical Exam Vitals: Vital Signs Temp Pulse Pulse Resp BP BP Pulse Ox 03/06/23 07:58 98.2 F 102 H 19 173/73 98 03/06/23 03:39 106 H 03/06/23 02:00 97.8 F 112 H 160/75 99 03/05/23 22:15 120 H 159/81 97 03/05/23 22:00 123 H 167/78 03/05/23 21:45 118 H 161/77 96 03/05/23 21:30 117 H 155/70 100 03/05/23 21:15 113 H 164/78 100 03/05/23 21:00 114 H 159/80 100 03/05/23 20:45 114 H 185/78 100 03/05/23 20:30 111 H 167/80 100 03/05/23 20:15 98.7 F 104 H 16 161/82 100 03/05/23 19:49 99 16 190/82 100 03/05/23 19:34 93 16 191/84 100 03/05/23 19:19 90 16 187/85 100 03/05/23 19:04 97.0 F L 96 16 180/81 96 Intake and Output 03/05/23 03/06/23 03/06/23 22:59 06:59 14:59 Intake Total 1452 850 Output Total 210 1840 Balance 1242 -990 Intake: IV 1452 Intake, IV Titration 850 Amount Sodium Chloride 0.9% 1, 600 000 ml @ 50 mls/hr IV . Q20H PAUL Rx#:[id number] Vancomycin 1,250 mg In 250 Sodium Chloride 0.9% 250 ml @ 125 mls/hr IVPB Q12H PAUL Rx#:[id number] Output: Drainage 60 140 Back 60 140 Urine 1700 Straight 1700 Estimated Blood Loss 150 Other: # Voids 2 Weight 68.039 kg Results CBC & Chem 7: 03/06/23 07:45 03/06/23 07:45 Labs: Abnormal Lab Results - Last 24 Hours (Table) 03/05/23 03/05/23 03/05/23 Range/Units 17:10 19:24 21:06 RBC (3.80-5.40) m/uL Hgb (11.4-16.0) gm/dL Hct (34.0-46.0) % MCV (80.0-100.0) fL RDW (11.5-15.5) % Plt Count (150-450) k/uL Macrocytosis Sodium (137-145) mmol/L BUN (7-17) mg/dL Glucose (74-99) mg/dL POC Glucose (mg/dL) 179 H 223 H 297 H (70-110) mg/dL 03/06/23 03/06/23 03/06/23 Range/Units 02:29 06:16 07:45 RBC 2.51 L (3.80-5.40) m/uL Hgb 8.6 L (11.4-16.0) gm/dL Hct 27.3 L (34.0-46.0) % MCV 109.0 H (80.0-100.0) fL RDW 16.3 H (11.5-15.5) % Plt Count 451 H (150-450) k/uL Macrocytosis Marked A Sodium (137-145) mmol/L BUN (7-17) mg/dL Glucose (74-99) mg/dL POC Glucose (mg/dL) 218 H 113 H (70-110) mg/dL 03/06/23 03/06/23 Range/Units 07:45 12:00 RBC (3.80-5.40) m/uL Hgb (11.4-16.0) gm/dL Hct (34.0-46.0) % MCV (80.0-100.0) fL RDW (11.5-15.5) % Plt Count (150-450) k/uL Macrocytosis Sodium 133 L (137-145) mmol/L BUN 22 H (7-17) mg/dL Glucose 106 H (74-99) mg/dL POC Glucose (mg/dL) 170 H (70-110) mg/dL
[2023-03-06 17:09] LABS: Glucose,Whole Blood 137 mg/dL (70-110)
[2023-03-06] MEDS: SODIUM CHLORIDE 0.9% 1,000 ML IV SCH (17:49)
[2023-03-06] MEDS: METOPROLOL TARTRATE 50 MG TAB PO SCH (20:54)
[2023-03-06] MEDS ORDERED: ATORVASTATIN 40 MG TAB PO SCH (21:00)
[2023-03-07] MEDS: DEXAMETHASONE SOD PHOSPHATE 4 MG/ML 1 ML VIAL IVP SCH (00:52)
[2023-03-07] MEDS: HYDROcodone/APAP 7.5-325MG 1 EACH TAB PO PRN (04:23)
[2023-03-07 06:11] LABS: Anisocytosis Slight; Basophils % (A) 0 %; Eosinophils # (A) 0.1 k/uL (0-0.7); Eosinophils % (A) 2 %; HCT 30.4 % (34.0-46.0); HGB 9.8 gm/dL (11.4-16.0); Hypochromasia Slight; Lymphocytes # (A) 0.5 k/uL (1.0-4.8); Lymphocytes % (A) 9 %; MCH 34.7 pg (25.0-35.0); MCHC 32.2 g/dL (31.0-37.0); Macrocytosis Marked; Monocytes # (A) 0.2 k/uL (0-1.0); Monocytes % (A) 3 %; Neutrophils # (A) 4.6 k/uL (1.3-7.7); Neutrophils % (A) 85 %; Platelet Count 469 k/uL (150-450); RBC 2.82 m/uL (3.80-5.40); RDW 16.3 % (11.5-15.5); WBC 5.4 k/uL (3.8-10.6)
[2023-03-07 06:13] LABS: MCV 107.9 fL (80.0-100.0)
[2023-03-07] MEDS ORDERED: LEVOTHYROXINE 75 MCG TAB PO SCH (06:30)
[2023-03-07] MEDS: VANCOMYCIN 1,250 MG in SODIUM CHLORIDE 0.9% 250 ML IVPB SCH (06:37)
[2023-03-07 06:38] LABS: African American GFR (CKD) >90 (>60 ml/min/1.73 sqM); Anion Gap 6 mmol/L; Blood Urea Nitrogen 14 mg/dL (7-17); Calcium 9.6 mg/dL (8.4-10.2); Carbon Dioxide 25 mmol/L (22-30); Chloride 104 mmol/L (98-107); Glucose 132 mg/dL (74-99); Non-African American GFR(CKD) >90 (>60 ml/min/1.73 sqM); Potassium 4.6 mmol/L (3.5-5.1); Sodium 135 mmol/L (137-145)
[2023-03-07] MEDS: HYDROmorphone 1 MG/ML 1 ML SYRINGE IVP PRN (08:22)
[2023-03-07] MEDS: METOPROLOL TARTRATE 50 MG TAB PO SCH (08:22)
[2023-03-07] MEDS: SENNOSIDES-DOCUSATE SODIUM 1 EACH TAB PO SCH (08:22)
[2023-03-07] MEDS ORDERED: FUROSEMIDE 40 MG TAB PO SCH (09:00)
[2023-03-07] MEDS ORDERED: HYDROcodone/APAP 7.5-325MG 1 EACH TAB PO PRN (09:46)
[2023-03-07] MEDS ORDERED: CYCLOBENZAPRINE 5 MG TAB PO SCH (10:00)
[2023-03-07 10:16] VITALS: BP 150/72; PULSE 108; RESP 18; TEMP 97.8
--- NOTE | 2023-03-07 11:29 | P.PN ---
Subjective Progress Note Date: 03/07/23 Principal diagnosis: 1. Grade 1 spondylolisthesis of L4 on L5 2.L4-L5 spondylosis with stenosis 3. Right lower extremity radiculopathy Patient seen and examined this morning. Patient is currently ambulating in hallway with a walker and standby assist, tolerating well. Patient reports that she accidentally pulled her Hemovac drained from the lumbar region earlier this morning. She states she notices a decrease of numbness and tingling into the right lower extremity, although she does report intermittent pain. New surgical dressing to the lumbar spine applied. Surgical incision is well approximated shereen intact, no drainage noted. Patient is wanting to go home today, patient declines home care. is at bedside and states that they will be able to manage her care at home. Patient has been afebrile, denies nausea/vomiting, or chest pain. Objective - Vital Signs Vital signs: Vital Signs Temp 98.0 F 03/07/23 01:37 Pulse 89 03/07/23 01:37 Resp 16 03/07/23 01:37 BP 124/66 03/07/23 01:37 Pulse Ox 99 03/07/23 01:37 FiO2 Intake & Output 03/06/23 03/07/23 03/07/23 18:59 06:59 18:59 Intake Total 850 Output Total 120 3025 600 Balance 730 -3025 -600 Intake: Intake, IV Titration 850 Amount Sodium Chloride 0.9% 1, 600 000 ml @ 50 mls/hr IV . Q20H PAUL Rx#:[id number] Vancomycin 1,250 mg In 250 Sodium Chloride 0.9% 250 ml @ 125 mls/hr IVPB Q12H PAUL Rx#:[id number] Output: Drainage 120 Back 120 Urine 3025 600 Straight 1250 Other: Voiding Method Bedside Commode # Voids 3 1 - Exam Physical Examination General: The patient is awake and alert, in no acute distress Skin: Skin is warm and dry with no obvious rashes or lesions. Surgical incision to the lumbar spine. Incision is well approximated with shereen intact, no drainage noted. Eye: Pupils are equal, round and reactive to light, extra-ocular movements are intact; there is normal conjunctiva bilaterally. Neck: The neck is supple, there is no tenderness and ROM intact. Cardiovascular: There is a regular rate and rhythm. No murmur, rub or gallop is appreciated. Respiratory: Lungs are clear to auscultation, respirations are non-labored, breath sounds are equal. Gastrointestinal: Soft, non-distended, non-tender abdomen. Back: There is no tenderness to palpation in the midline, paralumbar, parathoracic or buttocks region. There is no obvious deformity . Musculoskeletal: ROM limited secondary to pain and stiffness from surgical procedure. Muscle strength in all major muscle groups of bilateral upper extremities 5/5, bilateral lower extremities 4/5. Neurological: CN 2-12 intact. There are no obvious motor or sensory deficits. Movement and coordination equal and intact. Sensory exam to light touch intact C5-T1 and intact from L2-S1. Reflexes 2/4 in bilateral upper and lower extremities. Negative Hoffmans, babinski, and clonus signs. Psychiatric: Cooperative, appropriate mood & affect, normal judgment. - Labs CBC & Chem 7: 03/07/23 04:59 03/07/23 04:59 Labs: Abnormal Lab Results - Last 24 Hours (Table) 03/06/23 03/06/23 03/07/23 Range/Units 12:00 17:07 04:59 RBC 2.82 L (3.80-5.40) m/uL Hgb 9.8 L (11.4-16.0) gm/dL Hct 30.4 L (34.0-46.0) % MCV 107.9 H (80.0-100.0) fL RDW 16.3 H (11.5-15.5) % Plt Count 469 H (150-450) k/uL Lymphocytes # 0.5 L (1.0-4.8) k/uL Macrocytosis Marked A Sodium (137-145) mmol/L Glucose (74-99) mg/dL POC Glucose (mg/dL) 170 H 137 H (70-110) mg/dL 03/07/23 Range/Units 04:59 RBC (3.80-5.40) m/uL Hgb (11.4-16.0) gm/dL Hct (34.0-46.0) % MCV (80.0-100.0) fL RDW (11.5-15.5) % Plt Count (150-450) k/uL Lymphocytes # (1.0-4.8) k/uL Macrocytosis Sodium 135 L (137-145) mmol/L Glucose 132 H (74-99) mg/dL POC Glucose (mg/dL) (70-110) mg/dL Assessment and Plan Assessment: Postop day 2: Open L4-L5 posterior lateral interbody fusion 1. Grade 1 spondylolisthesis of L4 on L5 2.L4-L5 spondylosis with stenosis 3. Right lower extremity radiculopathy Plan: -Appreciate career consultant and team management. -Activity: Ambulate QID, OOB all meals, up and about, limit lifting bending twisting to less than 5 lbs. Use walker or cane if needed for stability. -Daily PT/OT, increase ambulation strength and balance. -Brace when up and about, not needed in bed or chair -Prescription left in chart for LSO brace -Pain control: Adequate at this time -Meds: reviewed -GI ppx: senna, Miralax -DVT PPX: Heparin -Hygiene: Shower today. Maintain dressing clean and dry. Meticulous cleaning after BMs away from the incision site -Drains: Maintain for now. Continue to monitor and record output. -Encourage IS 10x/hr -Dispo: Anticipate discharge home today 03/07/2023 *I reviewed and discussed this case with my attending Dr. Muhammad, whom has reviewed this chart and films and is in agreement with assessment and plan of care as outlined above. I have personally seen and examined the patient, performed the documentation and the assessment and plan as written. Number of minutes spent on the visit: 15m.
[2023-03-07 11:51] LABS: Glucose,Whole Blood 117 mg/dL (70-110)
[2023-03-07] MEDS: SODIUM CHLORIDE 0.9% 1,000 ML IV SCH (13:54)
--- NOTE | 2023-03-07 14:12 | P.PN ---
Subjective Progress Note Date: 03/07/23 patient is 62-year-old lady with past medical history significant for back pain who presented to the hospital for elective L4-5 minimally invasive posterior lumbar interbody fusion. Patient was being seen outpatient by orthopedics for her persistent back pain, continues to experience worsening lumbar spine pain that radiates down into the right lower extremity, associated with numbness and tingling. She notes this pain has been increasing over the last 1 year without any known injury or trauma. She has trialed several injections with no lasting relief of her symptoms. Orthopedic discussed with patient and decided that patient will go for surgical intervention. Postoperatively the medicine team was consulted for medical management 03/07. Patient seen and examined. Denies any back pain. Denies numbness of any extremity. States she is ready to go home REVIEW OF SYSTEMS: CONSTITUTIONAL: No fever, no malaise,. CARDIOVASCULAR: No chest pain, no palpitations, no syncope. PULMONARY: No shortness of breath, no cough, GASTROINTESTINAL: No diarrhea, no nausea, no vomiting, no abdominal pain. NEUROLOGICAL: No headaches, no weakness, PHYSICAL EXAMINATION: GENERAL: The patient is alert and oriented x3, not in any acute distress. Well developed, well nourished. HEENT: Pupils are round and equally reacting to light. EOMI. No scleral icterus. No conjunctival pallor. Normocephalic, atraumatic. No pharyngeal erythema. No thyromegaly. CARDIOVASCULAR: S1 and S2 present. No murmurs, rubs, or gallops. PULMONARY: Chest is clear to auscultation, no wheezing or crackles. ABDOMEN: Soft, nontender, nondistended, normoactive bowel sounds. No palpable organomegaly. MUSCULOSKELETAL: No joint swelling or deformity. EXTREMITIES: No cyanosis, clubbing, or pedal edema. NEUROLOGICAL: Gross neurological examination did not reveal any focal deficits. SKIN: Lumbar area surgical incision seen, no erythema, no drainage. Assessment and plan Grade 1 spondylolisthesis of L4 on L5 status post Posterior lateral and interbody fusion L4-L5 L4-L5 spondylosis with stenosis Right lower extremity radiculopathy Hyperlipidemia Hypertension Hypothyroidism Monitor vital signs Monitor CBC Monitor CMP Continue pain management per orthopedics Continue postoperative antibiotics per orthopedics Continue Lasix Continue Lopressor Continue Synthroid Follow up on PT and OT recs Objective - Vital Signs Vital signs: Vital Signs Temp 97.8 F 03/07/23 07:34 Pulse 108 H 03/07/23 07:34 Resp 18 03/07/23 07:34 BP 150/72 03/07/23 07:34 Pulse Ox 98 03/07/23 07:34 FiO2 Intake & Output 03/06/23 03/07/23 03/07/23 18:59 06:59 18:59 Intake Total 850 180 Output Total 120 3025 950 Balance 730 3026 -770 Intake: Intake, IV Titration 850 Amount Sodium Chloride 0.9% 1, 600 000 ml @ 50 mls/hr IV . Q20H PAUL Rx#:[id number] Vancomycin 1,250 mg In 250 Sodium Chloride 0.9% 250 ml @ 125 mls/hr IVPB Q12H PAUL Rx#:[id number] Oral 180 Output: Drainage 120 Back 120 Urine 3025 950 Straight 1250 Other: Voiding Method Bedside Commode # Voids 3 1 - Labs CBC & Chem 7: 03/07/23 04:59 03/07/23 04:59 Labs: Abnormal Lab Results - Last 24 Hours (Table) 03/06/23 03/06/23 03/07/23 Range/Units 12:00 17:07 04:59 RBC 2.82 L (3.80-5.40) m/uL Hgb 9.8 L (11.4-16.0) gm/dL Hct 30.4 L (34.0-46.0) % MCV 107.9 H (80.0-100.0) fL RDW 16.3 H (11.5-15.5) % Plt Count 469 H (150-450) k/uL Lymphocytes # 0.5 L (1.0-4.8) k/uL Macrocytosis Marked A Sodium (137-145) mmol/L Glucose (74-99) mg/dL POC Glucose (mg/dL) 170 H 137 H (70-110) mg/dL 03/07/23 Range/Units 04:59 RBC (3.80-5.40) m/uL Hgb (11.4-16.0) gm/dL Hct (34.0-46.0) % MCV (80.0-100.0) fL RDW (11.5-15.5) % Plt Count (150-450) k/uL Lymphocytes # (1.0-4.8) k/uL Macrocytosis Sodium 135 L (137-145) mmol/L Glucose 132 H (74-99) mg/dL POC Glucose (mg/dL) (70-110) mg/dL
[2023-03-08] MEDS ORDERED: VANCOMYCIN TROUGH DUE 1 EACH MISC MISCELLANE ONE (05:00)
== END 2023-03-07 14:43 | disposition home or self-care (01) ==
LOC: OR 13:16 → 4SSUR 19:06 → OR 03-06 08:17 → 4SSUR 03-06 08:17
PROVIDERS: ADMIT Orthopaedic Surgery; ATTEND Orthopaedic Surgery
DX: M47.26 Other spondylosis with radiculopathy, lumbar region (principal); M48.061 Spinal stenosis, lumbar region without neurogenic claudication; Z79.1 Long term (current) use of non-steroidal anti-inflammatories (NSAID); Z79.899 Other long term (current) drug therapy; Z79.890 Hormone replacement therapy; Z79.891 Long term (current) use of opiate analgesic; E11.42 Type 2 diabetes mellitus with diabetic polyneuropathy; E78.5 Hyperlipidemia, unspecified; I10 Essential (primary) hypertension; M19.90 Unspecified osteoarthritis, unspecified site; E03.9 Hypothyroidism, unspecified; Z98.891 History of uterine scar from previous surgery; Z98.890 Other specified postprocedural states; Z87.891 Personal history of nicotine dependence; Z81.8 Family history of other mental and behavioral disorders; Z79.4 Long term (current) use of insulin; Z88.5 Allergy status to narcotic agent; Z88.0 Allergy status to penicillin; Z91.040 Latex allergy status
CPT/HCPCS: 97116; 97110; 97161; 86900; 86901; 80048 ×2; 85025 ×2; 86850; 83036; 72100; 71045; 72131; 22630; 22853; 22840; G0378 ×2; C1713; J2250; J3370 ×3; J0330; J1580; J1100 ×2; J2710; J0690 ×2; J2405; J3010; J1170 ×4; J2370; J2704; J2001

== ENCOUNTER → 2023-04-11 | Outpatient (CLI) | payer BC ==
[2023-04-11 11:38] LABS: T4, Free (Free Thyroxine) 1.07 ng/dL (0.78-2.19)
== END | disposition home or self-care (01) ==
LOC: LABWHC1 09:57
PROVIDERS: ATTEND Family Medicine
DX: E03.9 Hypothyroidism, unspecified (principal); E10.65 Type 1 diabetes mellitus with hyperglycemia
CPT/HCPCS: 36415; 83036; 84439; 84443

== ENCOUNTER → 2023-07-17 | Outpatient (CLI) | payer BC | END | disposition home or self-care (01) | LOC: LABWHC1 11:38 | PROVIDERS: ATTEND Internal Medicine | DX: E10.65 Type 1 diabetes mellitus with hyperglycemia (principal) | CPT/HCPCS: 36415; 83036 ==

== ENCOUNTER → 2023-11-14 | Outpatient (CLI) | payer BC ==
[2023-11-14 13:46] LABS: ALT 27 U/L (8-44); AST 18 U/L (13-35); Albumin 4.4 g/dL (3.8-4.9); Albumin/Globulin Ratio 1.91 Ratio (1.60-3.17); Alkaline Phosphatase 125 U/L (41-126); BUN/Creat Ratio 17.08 Ratio (12.00-20.00); Blood Urea Nitrogen 20.5 mg/dL (9.0-27.0); Calcium 9.7 mg/dL (8.7-10.3); Carbon Dioxide 23.1 mmol/L (21.6-31.8); Chloride 101 mmol/L (96-109); Chol/HDL Ratio 2.01 Ratio; Globulin 2.3 g/dL (1.6-3.3); Glucose 114 mg/dL (70-110); LDL Cholesterol,Calculated 57.7 mg/dL (0.0-131.0); Potassium 4.2 mmol/L (3.5-5.5); Sodium 136 mmol/L (135-145); Total Bilirubin <0.2 mg/dL (0.3-1.2); Total Protein 6.7 g/dL (6.2-8.2); VLDL Calculation 11.72 mg/dL (5.00-40.00)
[2023-11-14 19:57] LABS: Microalbumin Creatinine Ratio <86 mg/g Cr (0-30)
== END | disposition home or self-care (01) ==
LOC: LABWHC1 08:56
PROVIDERS: ATTEND Internal Medicine
DX: E55.9 Vitamin D deficiency, unspecified (principal); E10.65 Type 1 diabetes mellitus with hyperglycemia
CPT/HCPCS: 36415; 80053; 80061; 82043; 82306; 82570; 83036; 84439; 84443

== ENCOUNTER → 2024-02-10 | Outpatient (CLI) | payer BC | END | disposition home or self-care (01) | LOC: LABWHC1 12:56 | PROVIDERS: ATTEND Internal Medicine | DX: E10.65 Type 1 diabetes mellitus with hyperglycemia (principal) | CPT/HCPCS: 36415; 83036 ==

== ENCOUNTER → 2024-06-18 | Outpatient (CLI) | payer BC ==
[2024-06-18 23:11] LABS: Basophils # (A) 0.11 X 10*3/uL (0.00-0.10); Basophils % (A) 1.4 %; Eosinophils # (A) 0.53 X 10*3/uL (0.04-0.35); Eosinophils % (A) 6.8 %; HCT 39.4 % (37.2-46.3); Lymphocytes # (A) 3.13 X 10*3/uL (0.90-5.00); Lymphocytes % (A) 40.4 %; MCH 29.6 pg (27.0-32.0); MCV 89.7 FL (80.0-97.0); Mean Platelet Volume 10.7 FL (9.5-12.2); Monocytes # (A) 0.82 X 10*3/uL (0.20-1.00); Monocytes % (A) 10.6 %; NRBC Per 100 WBC 0 X 10*3/uL (0.00-0.01); Neutrophils # (A) 3.13 X 10*3/uL (1.80-7.70); Neutrophils % (A) 40.5 %; Platelet Count 325 X 10*3/uL (140-440); RBC 4.39 X 10*6/uL (4.10-5.20); RDW 13.5 % (11.5-14.5); WBC 7.74 X 10*3/uL (4.50-10.00)
[2024-06-18 23:36] LABS: Chol/HDL Ratio 1.95 Ratio; LDL Cholesterol,Calculated 71.5 mg/dL (0.0-131.0)
[2024-06-18 23:39] LABS: ALT 23 U/L (8-44); AST 20 U/L (13-35); Albumin 4.7 g/dL (3.8-4.9); Albumin/Globulin Ratio 1.96 Ratio (1.60-3.17); Alkaline Phosphatase 89 U/L (41-126); BUN/Creat Ratio 16.85 Ratio (12.00-20.00); Blood Urea Nitrogen 21.9 mg/dL (9.0-27.0); Calcium 9.5 mg/dL (8.7-10.3); Carbon Dioxide 21.9 mmol/L (21.6-31.8); Chloride 99 mmol/L (96-109); Globulin 2.4 g/dL (1.6-3.3); Glucose 35 mg/dL (70-110); Potassium 4.6 mmol/L (3.5-5.5); Sodium 134 mmol/L (135-145); Total Bilirubin 0.2 mg/dL (0.3-1.2); Total Protein 7.1 g/dL (6.2-8.2)
[2024-06-19 17:25] LABS: Urine Creatinine 47.9 mg/dL (28.0-217.0)
== END | disposition home or self-care (01) ==
LOC: LABWHC1 09:55
PROVIDERS: ATTEND Internal Medicine
DX: Z00.01 Encounter for general adult medical examination with abnormal findings (principal); I10 Essential (primary) hypertension; E10.9 Type 1 diabetes mellitus without complications; E78.00 Pure hypercholesterolemia, unspecified; E03.9 Hypothyroidism, unspecified
CPT/HCPCS: 36415; 80053; 80061; 82043; 82570; 83036; 84443; 85025

== ENCOUNTER → 2025-02-18 | Outpatient (CLI) | payer BC ==
[2025-02-19 01:05] LABS: ALT 30 U/L (8-44); AST 21 U/L (13-35); Albumin 4.5 g/dL (3.8-4.9); Alkaline Phosphatase 77 U/L (41-126); BUN/Creat Ratio 17.29 Ratio (12.00-20.00); Blood Urea Nitrogen 24.2 mg/dL (9.0-27.0); Calcium 9.9 mg/dL (8.7-10.3); Carbon Dioxide 18.2 mmol/L (21.6-31.8); Chloride 100 mmol/L (96-109); Globulin 2.5 g/dL (1.6-3.3); Glucose 102 mg/dL (70-110); Potassium 5.3 mmol/L (3.5-5.5); Sodium 133 mmol/L (135-145); T4, Free (Free Thyroxine) 1.53 ng/dL (0.80-1.80); Total Bilirubin 0.3 mg/dL (0.3-1.2)
== END | disposition home or self-care (01) ==
LOC: LABWHC1 12:05
PROVIDERS: ATTEND Internal Medicine
DX: E10.43 Type 1 diabetes mellitus with diabetic autonomic (poly)neuropathy (principal); E03.9 Hypothyroidism, unspecified
CPT/HCPCS: 36415; 80053; 83036; 84439; 84443